=== PATIENT | male | born 1980 | race Caucasian/White ===

== ENCOUNTER 2019-12-23 10:50 | Emergency (ER) | payer SELFPAY ==
[~2019-12-23] VITALS: Ht 185.4 cm; Wt 108.0 kg
[2019-12-23] MEDS ORDERED: SODIUM CHLORIDE 0.9% 1000ML 1,000 ML IV STA (11:06)
[2019-12-23] MEDS ORDERED: ASPIRIN 81 MG CHEW TAB PO ONE (11:15)
[2019-12-23 11:25] LABS: BASOPHILS # (AUTO) 0.1 (0.0-0.1); BASOPHILS % 0.5 % (0.0-1.0); EOSINOPHILS % 0.1 % (0.0-6.0); HEMATOCRIT 44.2 % (38.2-49.6); HEMOGLOBIN 15.9 g/dL (14.0-18.0); LYMPHOCYTES # (AUTO) 1.4 (1.0-3.2); LYMPHOCYTES % 12.2 % (18.0-39.1); MEAN CORPUSCULAR HEMOGLOBIN 36.7 pg (28-32); MEAN CORPUSCULAR VOLUME 102.1 fL (81-99); MONOCYTES # (AUTO) 0.8 (0.2-0.8); MONOCYTES % 7.6 % (4.4-11.3); NEUTROPHILS # (AUTO) 8.7 (2.1-6.9); NEUTROPHILS % 79.1 % (38.7-80.0); PLATELET COUNT 129 x10e3/uL (140-360); RED BLOOD COUNT 4.33 x10e6/uL (4.3-5.7); RED CELL DISTRIBUTION WIDTH 11.3 % (11.7-14.4)
[2019-12-23] MEDS: ASPIRIN 81 MG CHEW TAB PO ONE ×2 (11:35→12:03)
[2019-12-23 11:37] LABS: ALANINE AMINOTRANSFERASE 50 IU/L (0-55); ALBUMIN/GLOBULIN RATIO 1.5 (0.8-2.0); ALKALINE PHOSPHATASE 62 IU/L (40-150); ANION GAP 13.7 mmol/L (8-16); BLOOD UREA NITROGEN 6 mg/dL (7-26); BUN/CREATININE RATIO 6 (6-25); CALCIUM 8.9 mg/dL (8.4-10.2); CARBON DIOXIDE 26 mmol/L (22-29); CHLORIDE 103 mmol/L (98-107); CREATINE KINASE 86 IU/L (30-200); CREATININE, SERUM 0.95 mg/dL (0.72-1.25); EST GLOMERULAR FILTRATION RATE > 60 ML/MIN (60-); GLUCOSE 112 mg/dL (74-118); POTASSIUM 3.7 mmol/L (3.5-5.1); SODIUM 139 mmol/L (136-145)
--- NOTE | 2019-12-23 11:37 | Diagnostic Imaging Report ---
EXAMINATION: CHEST SINGLE (PORTABLE) INDICATION: Chest pain COMPARISON: None FINDINGS: LINES/TUBES:EKG leads overlie the chest. LUNGS:The lungs are well-inflated. No focal consolidation or pulmonary edema. PLEURA:No pleural effusion or pneumothorax. MEDIASTINUM:The cardiomediastinal silhouette appears normal in size and shape. BONES/SOFT TISSUES:No acute osseous injury. ABDOMEN:No free air under the diaphragm. IMPRESSION: No focal pneumonia or pulmonary edema. Signed by: Naz Dent MD on 12/23/2019 11:34 AM
--- OUTSIDE RECORDS SUMMARY | 2019-12-23 11:48 | XMS REPORT | Clinical Summary ---
Author Author [facility] ict Organization [facility] ict Address Unknown Phone Unavailable Care Team Providers Care Marble Machine Tender Name Role Phone Ben Arias MD PCP [phone] Allergies No Known Allergies Medications End Date Status Medication Sig Dispensed Refills Start Date Active polyethylene glycol Add lukewarm 4000 mL 0 08/03 (GOLYTELY) [id number] drinking 7 -5.86 gram oral water to the solutionIndications: fill jaylyn (4 Hematochezia liters) and shake. Drink as directed by your doctor.. Active sulindac (CLINORIL) 200 Take 1 tablet 40 tablet 0 mg tabletIndications: by mouth 2 7 Polyarthralgia times daily as needed for Pain. Additional Information Patient not taking. Reported on 10/16/2019 11:01 AM Active ergocalciferol (VITAMIN Take 1 12 capsule 3 D2) 50,000 unit capsule by 8 capsuleIndications: mouth weekly. Vitamin D deficiency Active acetaminophen-codeine Take 1 tablet 30 tablet 0 (TYLENOL/CODEINE #3) by mouth 2 8 300-30 mg per times daily tabletIndications: Tear as needed for of left supraspinatus Pain. tendon, sequela, Pain of both shoulder joints, Low back pain at multiple sites Additional Information Patient not taking. Reported on 12/11/2019 2:52 PM Active tiotropium (SPIRIVA WITH Inhale 1 30 capsule 2 0 HANDIHALER) 18 mcg capsule by 9 inhalation mouth daily. capsuleIndications: Shortness of breath Active nicotine (NICODERM CQ) 21 Apply 1 Patch 28 Patch 0 mg/24 hr to skin as 0 patchIndications: Tobacco directed use disorder daily. Active nicotine polacrilex Place 1 Each 1 Each 0 05/09 (NICORETTE) 2 mg inside cheek 0 GumIndications: Tobacco every 2 hours use disorder as needed (Tobacco withdrawals). Additional Information Patient not taking. Reported on 10/16/2019 11:01 AM Active thiamine, B-1, 100 mg Take 1 tablet 30 tablet 0 tabletIndications: by mouth 0 Alcohol use disorder, daily. severe, in early remission Active propranoloL (INDERAL) 20 Take 1 tablet 270 tablet 1 mg tabletIndications: by mouth 3 0 Other mixed anxiety times daily. disorders Active aspirin (ASPIRIN) 81 mg Chew and 0 chewable tablet swallow 81 mg by mouth daily. Active omeprazole (PRILOSEC) 20 Take 1 90 capsule 1 0 mg delayed release capsule by 0 capsuleIndications: mouth daily Gastroesophageal reflux STOP disease, esophagitis FAMOTIDINE. presence not specified Active naltrexone (REVIA, Take 1 tablet 30 tablet 1 11/25 VIVITROL) 50 mg by mouth 0 tabletIndications: daily. Bipolar II disorder Active gabapentin (NEURONTIN) Take 1 120 capsule 1 300 mg capsule by 0 capsuleIndications: Other mouth 4 times mixed anxiety disorders daily. 12/26/2019 Active lithium carbonate Take 1 90 capsule 1 11/26/19 2 (ESKALITH) 300 mg capsule by 0 capsuleIndications: mouth daily Bipolar II disorder AND 2 capsules at bedtime nightly. Do all this for 30 days. Active nitroGLYCERIN (NITROSTAT) Dissolve 1 100 tablet 3 0.4 mg sublingual tablet under 0 tabletIndications: the tongue Coronary artery disease every 5 involving [place] coronary minutes as artery of [place] heart needed, up to without angina pectoris 3 times. If chest pain persists, call 911. 02/12/2019 Discontinued (Reorder) gabapentin (NEURONTIN) Take 1 120 capsule 1 300 mg capsule by 9 capsuleIndications: Other mouth 4 times mixed anxiety disorders daily. 02/12/2019 Discontinued (Reorder) amitriptyline (ELAVIL) 25 Take 2 60 tablet 3 mg tabletIndications: tablets by 9 Bipolar II disorder mouth at bedtime nightly. 02/12/2019 Discontinued (Reorder) lithium carbonate Take 3 170 capsule 1 10/01/20 1 (ESKALITH) 300 mg capsules by 9 capsuleIndications: mouth 2 times Bipolar II disorder daily (with meals). 02/12/2019 Discontinued (Reorder) naltrexone (REVIA, Take 1 tablet 30 tablet 1 12/18 VIVITROL) 50 mg by mouth 9 tabletIndications: daily. Bipolar II disorder 02/12/2019 Discontinued (Reorder) propranolol (INDERAL) 10 Take 1 tablet 90 tablet 1 mg tabletIndications: by mouth 3 9 Bipolar II disorder times daily as needed (anxiety). 03/26/2019 Discontinued (Reorder) gabapentin (NEURONTIN) Take 1 120 capsule 1 300 mg capsule by 9 capsuleIndications: Other mouth 4 times mixed anxiety disorders daily. 03/26/2019 Discontinued (Reorder) amitriptyline (ELAVIL) 25 Take 2 60 tablet 3 mg tabletIndications: tablets by 9 Bipolar II disorder mouth at bedtime nightly. 03/26/2019 Discontinued (Reorder) lithium carbonate Take 3 170 capsule 1 02/13/20 1 (ESKALITH) 300 mg capsules by 9 capsuleIndications: mouth 2 times Bipolar II disorder daily (with meals). 03/26/2019 Discontinued (Reorder) naltrexone (REVIA, Take 1 tablet 30 tablet 1 02/12 VIVITROL) 50 mg by mouth 9 tabletIndications: daily. Bipolar II disorder 03/26/2019 Discontinued (Reorder) propranolol (INDERAL) 10 Take 1 tablet 90 tablet 1 mg tabletIndications: by mouth 3 9 Bipolar II disorder times daily as needed (anxiety). 05/28/2019 Discontinued (Reorder) gabapentin (NEURONTIN) Take 1 120 capsule 1 300 mg capsule by 0 capsuleIndications: Other mouth 4 times mixed anxiety disorders daily. 05/09/2019 Discontinued (Patient Discha rge) amitriptyline (ELAVIL) 25 Take 2 60 tablet 3 mg tabletIndications: tablets by 0 Bipolar II disorder mouth at bedtime nightly. 05/09/2019 Discontinued (Patient Discha rge) lithium carbonate Take 3 170 capsule 1 03/26/19 2 (ESKALITH) 300 mg capsules by 0 capsuleIndications: mouth 2 times Bipolar II disorder daily (with meals). 05/28/2019 Discontinued (Reorder) naltrexone (REVIA, Take 1 tablet 30 tablet 1 03/26 VIVITROL) 50 mg by mouth 0 tabletIndications: daily. Bipolar II disorder 05/28/2019 Discontinued (Therapy comple marcel) propranolol (INDERAL) 10 Take 1 tablet 90 tablet 1 mg tabletIndications: by mouth 3 0 Bipolar II disorder times daily as needed (anxiety). 05/28/2019 Discontinued (Reorder) lithium carbonate Take 1 45 capsule 0 05/09/19 2 (ESKALITH) 300 mg capsule by 0 capsuleIndications: mouth daily Bipolar II disorder AND 2 capsules at bedtime nightly. 05/24/2019 hydrOXYzine (ATARAX) 50 Take 1 tablet 45 tablet 0 mg tabletIndications: by mouth 3 0 Depressive disorder times daily as needed for up to 15 days for Anxiety. 05/28/2019 Discontinued (Therapy comple marcel) QUEtiapine (SEROQUEL) 25 Take 1 tablet 30 tablet 0 mg tabletIndications: by mouth 2 0 Bipolar II disorder times daily. 07/23/2019 Discontinued (Reorder) lithium carbonate Take 1 45 capsule 0 05/28/19 2 (ESKALITH) 300 mg capsule by 0 capsuleIndications: mouth daily Bipolar II disorder AND 2 capsules at bedtime nightly. 07/23/2019 Discontinued (Reorder) gabapentin (NEURONTIN) Take 1 120 capsule 1 300 mg capsule by 0 capsuleIndications: Other mouth 4 times mixed anxiety disorders daily. 07/23/2019 Discontinued (Reorder) naltrexone (REVIA, Take 1 tablet 30 tablet 1 05/27 VIVITROL) 50 mg by mouth 0 tabletIndications: daily. Bipolar II disorder 10/01/2019 Discontinued (Reorder) naltrexone (REVIA, Take 1 tablet 30 tablet 1 07/22 VIVITROL) 50 mg by mouth 0 tabletIndications: daily. Bipolar II disorder 10/01/2019 Discontinued (Reorder) gabapentin (NEURONTIN) Take 1 120 capsule 1 300 mg capsule by 0 capsuleIndications: Other mouth 4 times mixed anxiety disorders daily. 10/01/2019 Discontinued (Reorder) lithium carbonate Take 1 45 capsule 0 07/23/19 2 (ESKALITH) 300 mg capsule by 0 capsuleIndications: mouth daily Bipolar II disorder AND 2 capsules at bedtime nightly. 11/26/2019 Discontinued (Duplicate Orde r) propranoloL (INDERAL) 10 Take 1 tablet 90 tablet 1 mg tabletIndications: by mouth 3 0 Other mixed anxiety times daily disorders as needed (anxiety). 08/22/2019 Discontinued (Reorder) propranoloL (INDERAL) 20 Take 1 tablet 270 tablet 1 mg tabletIndications: by mouth 3 0 Other mixed anxiety times daily. disorders 08/22/2019 Discontinued (Reorder) famotidine (PEPCID) 20 mg Take 1 tablet 180 tablet 1 tabletIndications: by mouth 2 0 Gastroesophageal reflux times daily. disease, esophagitis presence not specified 10/17/2019 Discontinued (Error) famotidine (PEPCID) 20 mg Take 1 tablet 180 tablet 1 tabletIndications: by mouth 2 0 Gastroesophageal reflux times daily. disease, esophagitis presence not specified 11/26/2019 Discontinued (Reorder) lithium carbonate Take 1 90 capsule 1 10/01/19 2 (ESKALITH) 300 mg capsule by 0 capsuleIndications: mouth daily Bipolar II disorder AND 2 capsules at bedtime nightly. Do all this for 30 days. 11/26/2019 Discontinued (Reorder) naltrexone (REVIA, Take 1 tablet 30 tablet 1 09/30 VIVITROL) 50 mg by mouth 0 tabletIndications: daily. Bipolar II disorder 11/26/2019 Discontinued (Reorder) gabapentin (NEURONTIN) Take 1 120 capsule 1 300 mg capsule by 0 capsuleIndications: Other mouth 4 times mixed anxiety disorders daily. Status Hospital, Clinic, or Ordered Dose Route Frequency Start End Date Other Facility Date Administered Medication Ended ketorolac (TORADOL) 30 mg IM ONCE 05/16/19 injection 30 20 0 mgIndications: Polyarthralgia Active Problems Problem Noted Date Depressive disorder 05/07/2019 Alcohol use disorder, severe, in early remission Bipolar II disorder 02/19/2015 Alcohol use disorder, severe, dependenc e Resolved Problems Problem Noted Date Resolved Date Closed bimalleolar fracture of right ankle 06/04/2018 05/09/2019 Left wrist pain 09/17/2015 05/09/2019 Supraspinatus tendon tear 03/19/2015 05/09/2019 Left shoulder pain 03/19/2015 05/09/2019 Fracture, metacarpal 04/28/2009 05/09/2019 Encounters Care Team Description Date Type Specialty Radha Gundreson MD Coronary artery disease involving [place] coronary artery of [place] heart without angina pectoris (Primary Dx) 12/12/2019 Telephonic Cardiology Encounter Radha Gunderson MD Cory Haynes Mathieu 12/06/2019 Hospital Cardiology Encounter Kendra Elder MDD (major depressive disorder), recurre nt episode, moderate (Primary Dx); CECIL (generalized anxiety disorder); Panic attacks 12/06/2019 Telephonic Psychology Encounter Josh Andrade ResidentDO Bipolar II disorder (Primary Dx); Other mixed anxiety disorders; Alcohol use disorder, severe, dependence; Sedative abuse; Tobacco use disorder; Cluster B personality disorder in adult 11/26/2019 Office Visit Psychiatry Chronic sore throat; Dysphagia, unspecified type 10/24/2019 Ancillary Radiology Procedure Radha Gunderson MD Chest pain, unspecified type (Primary Dx ) 10/17/2019 Telephonic Cardiology Encounter Shandra Muhammad MD Chronic sore throat (Primary Dx); Dysphagia, unspecified type; Gastroesophageal reflux disease, esophagitis presence not specified 10/17/2019 Telephonic Family Practice Encounter Kendra Elder 10/14/2019 Telephonic Psychology Encounter Cee Wheat MD 10/10/2019 Telemedicine Psychiatry Cee Wheat MD NO SHOW ENCOUNTER (Primary Dx) 10/03/2019 Telemedicine Psychiatry Rhys Olivares MD Sanchez, Roberto D, ResidentDO Bipolar II disorder (Primary Dx); Other mixed anxiety disorders; Preventative health care 10/01/2019 Office Visit Psychiatry Ben Arias MD Cardiac ischemia (Primary Dx); Encounter to discuss test results 09/26/2019 Telephonic Family Practice Encounter Ben Arias MD 09/24/2019 Hospital Radiology Encounter Kendra Elder MDD (major depressive disorder), severe (Primary Dx); Panic attacks; ETOH abuse 09/16/2019 Office Visit Psychology Kendra Elder MDD (major depressive disorder), severe (Primary Dx); CECIL (generalized anxiety disorder); Panic attacks 08/26/2019 Office Visit Psychology Shandra Muhammad MD Bipolar disorder with depression (Primar y Dx); Other mixed anxiety disorders; Anxiety; History of chest pain; Gastroesophageal reflux disease, esophagitis presence not specified 08/22/2019 [facility] Muhammad MD 08/22/2019 [facility] Rhys Olivares MD Bipolar II disorder (Primary Dx); Other mixed anxiety disorders; Alcohol use disorder, severe, dependence; Nicotine use disorder; Insomnia due to other mental disorder; Sedative abuse 08/20/2019 Office Visit Psychiatry Corinne Cordova MD Bipolar II disorder; Other mixed anxiety disorders 07/23/2019 Telephonic Psychiatry Encounter Cee Wheat MD Bipolar II disorder (Primary Dx); Other mixed anxiety disorders; Alcohol use disorder, severe, dependence; Tobacco use disorder; Nicotine use disorder 06/03/2019 Office Visit Psychiatry Corinne Cordova MD Bipolar II disorder; Other mixed anxiety disorders 05/28/2019 Office Visit Psychiatry Lilibeth Macedo Bipolar II disorder (Primary Dx); Alcohol use disorder, moderate, dependence; History of marijuana use; History of cocaine use; History of methamphetamine use 05/23/2019 Office Visit Psychology Ben Arias MD Polyarthralgia (Primary Dx); Bipolar disorder with depression; Hospital discharge follow-up; Need for influenza vaccination 05/16/2019 [facility] Nini Hunt 05/09/2019 Hospital Encounter Dario Suarez MD Depressive disorder (Primary Dx); Alcohol use disorder, severe, dependence; Tobacco use disorder; Alcohol use disorder, severe, in early remission; Bipolar II disorder 05/07/2019 Hospital Psychiatry - Encounter 05/09/2019 Corinne Cordova MD Coverdale, John H, MD Bipolar II disorder (Primary Dx) 05/07/2019 Office Visit Psychiatry Corinne Cordova MD Other mixed anxiety disorders; Bipolar II disorder 03/26/2019 Office Visit Psychiatry Corinne Cordova MD Other mixed anxiety disorders; Bipolar II disorder 02/12/2019 Office Visit Psychiatry after 12/22/2018 Immunizations Name Administration Dates Next Due Influenza, Vaccine 06/05/2018 (Deferred: Patie nt Refused) <FLUCELVAX>(Preservative- Free) Tdap (Tetanus Toxoid, 10/18/2017 Reduced Diphtheria Toxoid And Acellular Pertussis, Absorbed) Family History Medical History Relation Name Comments Asthma Brother Arthritis Maternal Grandmother Asthma Maternal Grandmother Diabetes Maternal Grandmother Arthritis Mother Relation Name Status Comments Brother Alive Brother Alive Brother Brother Father Alive Maternal Grandmother Mother Alive Social History Date Tobacco Use Types Packs/Day Years Used Current Every Day Smoker Cigarettes 1 15 Smokeless Tobacco: Never Used Tobacco Cessation: Ready to Quit: No; Co unseling Given: Yes Drinks/Week oz/Week Comments Alcohol Use 12pk a day Yes Food Insecurity Answer Date Recorded Within the past 12 months, you worried that your Never josué e 06/04/2018 food would run out before you got money to buy more. Within the past 12 months, the food you bought Never true 06/04/2018 just didn't last and you didn't have mo jordy to get more. Sex Assigned at Date Recorded Not on file Industry Job Start Date Occupation Not on file Not on file Not on file Travel End Travel History Travel Start No recent travel history available. Date Recorded COVID-19 Exposure Response 12/11/2019 2:45 PM CDT In the last month, have you been in contact with No / Unsure someone who was confirmed or suspected to have Coronavirus / COVID-19? Last Filed Vital Signs Reading Time Taken Comments Vital Sign 155/114 12/11/2019 2:46 PM CDT Blood Pressure 70 12/11/2019 2:46 PM CDT Pulse 36.9 C (98.5 F) 11/26/2019 9:47 AM CDT Temperature 20 11/26/2019 9:47 AM CDT Respiratory Rate 100% 11/26/2019 9:47 AM CDT Oxygen Saturation - - Inhaled Oxygen Concentration 109.6 kg (241 lb 9.6 oz) 11/26/2019 9:47 AM CDT Weight 185.4 cm (6' 1") 11/26/2019 9:47 AM CDT Height 31.88 11/26/2019 9:47 AM CDT Body Mass Index Plan of Treatment Care Team Description Date Type Specialty Kendra [address]. [id number] [place] [address] [phone] 01/07/2020 Telephonic Psychology Encounter Cee Wheat MD [address] [place], [place] [id number] 01/27/2020 Office Visit Psychiatry Health Maintenance Due Date Last Done Comments IMM Influenza Seasonal 12/19/2019 01/22/2015Dec to May (>/= 19 yrs) (Declined) CORONARY ARTERY DISEASE 05/08/2020 05/08/2019, AGE 18 AND UP 06/05/2018, 01/22/2015 Procedures Comments Procedure Name Priority Date/Time Associated Diag nosis ECHG NON-INVASIVE PROC Routine 12/06/2019 Chest p ain, unspecified ECHOCARDIOGRAM 2-D W/O 10:52 AM CDT type CONTRAST (PROSOLVE) XRAY UPPER GI W AIR Routine 10/24/2019 Chronic so re throat CONTRAST 10:01 AM CDT Dysphagia, unspecif ied type MYOCARDIAL PERFUSION Routine 09/24/2019 History o f chest pain SPECT REST/STRES MULTIPLE 10:12 AM CDT ECHG STRESS TREADMILL - 09/24/2019 TRACING ONLY (PROSOLVE) 9:14 AM CDT CBC Routine 05/08/2019 11:39 AM EQUIPMENT VALIDATION ENGINEER LIPID PROFILE Routine 05/08/2019 11:39 AM EQUIPMENT VALIDATION ENGINEER HEMOGLOBIN A1C Routine 05/08/2019 11:39 AM EQUIPMENT VALIDATION ENGINEER HIV AG/AB COMBO Routine 05/08/2019 DIAGNOSTIC/SYMPTOMATIC 11:39 AM EQUIPMENT VALIDATION ENGINEER HEPATITIS PANEL Routine 05/08/2019 11:39 AM EQUIPMENT VALIDATION ENGINEER COMPREHENSIVE METABOLIC Routine 05/08/2019 PANEL 11:39 AM EQUIPMENT VALIDATION ENGINEER CBC/DIFF Routine 05/08/2019 11:39 AM EQUIPMENT VALIDATION ENGINEER LITHIUM Routine 05/08/2019 11:39 AM EQUIPMENT VALIDATION ENGINEER THYROID STIMULATING Routine 05/08/2019 HORMONE (TSH) 11:39 AM EQUIPMENT VALIDATION ENGINEER URINALYSIS Routine 05/07/2019 3:38 PM EQUIPMENT VALIDATION ENGINEER URINALYSIS Routine 05/07/2019 3:38 PM EQUIPMENT VALIDATION ENGINEER URINE DRUG SCREEN Routine 05/07/2019 3:38 PM EQUIPMENT VALIDATION ENGINEER after 12/22/2018 Results * TRANSTHORACIC ECHO (TTE) (12/06/2019 10:52 AM CDT) TRANSTHORACIC Transthoracic SMS ECHO (TTE) Echo Report STEVE ARCHER Age: 39 Gender: M : 1980 Exam Date: 12/06/2019 10:52 Exam Location: [facility] Echo Ordering Phys: RADHA GUNDERSON (hchd/tabbar) Referring Phys: RADHA GUNDERSON (hchd/tabbar) Reading Phys: Mayra Lang M.D. Fellow Phys: Estrada Ye M.D. Fellow Phys: Systems Engineer: Cory Haynes Reason For Exam: Indications: ANGINA, unspecified ICD-9 Codes: I20.8 Exam Type: TRANSTHORACIC ECHO (TTE) Procedure CPT: 89659 Addtional CPT: C8929 Ht (in): 73 BSA: 2.40 HR: 92 Rhythm: Sinus rhythm Wt (lb): 241 BP: 147 / 97 Technical Quality: Technically difficult study History: Chest pain MEASUREMENTS Normal ranges based on 95% confidence intervals for adults, some normal patients may fall outside of this range especially when indexing for BSA 2D ECHO LV Diastolic Diameter PLAX 4.9 cm 4.2-5.8 (M) / 3.8-5.2 (F) LV Systolic Diameter PLAX 2.9 cm 2.5-4.0 (M) / 2.2-3.5 (F) LV Fractional Shortening PLAX 39.9 % IVS Diastolic Thickness 0.76 cm 0.6-1.0 (M) / 0.6-0.9 (F) LVPW Diastolic Thickness 0.71 cm 0.6-1.0 (M) / 0.6-0.9 (F) LV Relative Wall Thickness 0.3 <= 0.42 LVOT Diameter 2.3 cm Aortic Root Diameter 2.5 cm LV Diastolic Volume MOD BP 88.3 cm 62-150 cm (M) / 46-106 cm (F) LV Systolic Volume MOD BP 29.2 cm 21-61 cm (M) / 14-42 cm (F) LV Ejection Fraction MOD BP 66.9 % 52-72 (M) / 54-74 (F) LV Stroke Volume MOD BP 59.1 cm LV Cardiac Output MOD BP 5437 cm/min LV Cardiac Index MOD BP 2264 cm/minm LV Mass by linear method 117 g LV Mass by linear method Index 48.9 g/m Aorta at Sinotubular Diameter 4.2 cm Ascending Aorta Diameter 3.4 cm RA Volume 57.3 cm RA Volume Index 23.9 cm/m DOPPLER AV Peak Velocity 126 cm/s AV Peak Gradient 6.4 mmHg AV Mean Velocity 82.2 cm/s AV Mean Gradient 2.7 mmHg AV Velocity Time Integral 22.1 cm LVOT Peak Velocity 117 cm/s LVOT Peak Gradient 5.5 mmHg LVOT Mean Velocity 71.1 cm/s LVOT Mean Gradient 2 mmHg LVOT Velocity Time Integral 23.1 cm LVOT Stroke Volume 98.7 cm AV Area Cont Eq vti 4.5 cm AV Area Cont Eq pk 4 cm Mitral E Point Velocity 62.4 cm/s Mitral A Point Velocity 48.1 cm/s Mitral E to A Ratio 1.3 LV E' Lateral Velocity 11.4 cm/s Mitral E to LV E' Lateral Ratio 5.5 LV E' Septal Velocity 8.8 cm/s Mitral E to LV E' Septal Ratio 7.1 FINDINGS Left Ventricle The left ventricle is normal in size. Normal LV wall thickness. LV systolic function is normal. LVEF is 65 - 69%. There are no regional wall motion abnormalities. There is normal LV relaxation with normal filling pressures. Right Ventricle The right ventricle is not well visualized but appears dilated in some views. RV systolic function is normal (TAPSE 2.5 cm). Right Atrium The right atrium is normal in size. Left Atrium Grossly, left atrium is normal in size. Unable to accurately quantify due to forshortening. IAS Lipomatous hypertrophy of the interatrial septum (normal variant). Mitral Valve Structurally normal mitral valve. There is trace mitral regurgitation. Aortic Valve The aortic valve is trileaflet and structurally normal. There is no aortic stenosis. There is no aortic regurgitation. Tricuspid Valve Structurally normal tricuspid valve. There is trace tricuspid regurgitation. Insufficient TR jet to estimate pulmonary artery systolic pressure. Pulmonic Valve Normal by Doppler assessment. Pericardium Trace posterior pericardial effusion. Aorta Mild aortic dilatation at the level of the sinuses of valsalva (4.2 cm). IVC The inferior vena cava is normal in size. RA pressure is 5 mmHg. CONCLUSIONS Normal left ventricular size and systolic function. LVEF 65-69%. No regional wall abnormalities. RV is dilated with normal systolic function. No hemodynamically significant valvular abnormalities. Mild aortic root dilation (4.2 cm). No prior study for comparison. Mayra Lang M.D. (Electronically Signed) Final Date: 06 December 2019 13:49 2D ECHO LV Diastolic Diameter PLAX 4.9 cm 4.2-5.8 (M) / 3.8-5.2 (F) LV Systolic Diameter PLAX 2.9 cm 2.5-4.0 (M) / 2.2-3.5 (F) LV Fractional Shortening PLAX 39.9 % IVS Diastolic Thickness 0.76 cm 0.6-1.0 (M) / 0.6-0.9 (F) LVPW Diastolic Thickness 0.71 cm 0.6-1.0 (M) / 0.6-0.9 (F) LV Relative Wall Thickness 0.3 <= 0.42 LVOT Diameter 2.3 cm Aortic Root Diameter 2.5 cm LV Diastolic Volume MOD BP 88.3 cm 62-150 cm (M) / 46-106 cm (F) LV Systolic Volume MOD BP 29.2 cm 21-61 cm (M) / 14-42 cm (F) LV Ejection Fraction MOD BP 66.9 % 52-72 (M) / 54-74 (F) LV Stroke Volume MOD BP 59.1 cm LV Cardiac Output MOD BP 5437 cm/min LV Cardiac Index MOD BP 2264 cm/minm LV Mass by linear method 117 g LV Mass by linear method Index 48.9 g/m Aorta at Sinotubular Diameter 4.2 cm Ascending Aorta Diameter 3.4 cm RA Volume 57.3 cm RA Volume Index 23.9 cm/m DOPPLER AV Peak Velocity 126 cm/s AV Peak Gradient 6.4 mmHg AV Mean Velocity 82.2 cm/s AV Mean Gradient 2.7 mmHg AV Velocity Time Integral 22.1 cm LVOT Peak Velocity 117 cm/s LVOT Peak Gradient 5.5 mmHg LVOT Mean Velocity 71.1 cm/s LVOT Mean Gradient 2 mmHg LVOT Velocity Time Integral 23.1 cm LVOT Stroke Volume 98.7 cm AV Area Cont Eq vti 4.5 cm AV Area Cont Eq pk 4 cm Mitral E Point Velocity 62.4 cm/s Mitral A Point Velocity 48.1 cm/s Mitral E to A Ratio 1.3 LV E' Lateral Velocity 11.4 cm/s Mitral E to LV E' Lateral Ratio 5.5 LV E' Septal Velocity 8.8 cm/s Mitral E to LV E' Septal Ratio 7.1 Specimen Performing Organization Address [facility] one Number SMS * XRAY UPPER GI W AIR CONTRAST (10/24/2019 10:01 AM CDT) Specimen Impressions Performed At IMPRESSION: SMS Small amount of gastroesophageal reflux into the distal esophagus. No mucosal abnormalities. If the report is "FINALIZED" it indicat es that the attending/staff radiologist has reviewed the images and agrees with the resident's interpretation. Dictated By: Wisam Guerrero MD, 10/24/2019 2: 19 PM I have reviewed the study and agree wit h the findings in this report. Signed By: Bright Reed, 10/24/2019 3: 38 PM Narrative Performed At EXAM: DOUBLE BARIUM ESOPHAGRAM SMS INDICATION: chronic sore throat 8 month s, Hx of GERD, endorses food getting stuck in throat COMPARISON: None available. TECHNIQUE: Thick barium and effervescen t granules followed by thin barium were swallowed by mouth and fluo roscopy was performed of the esophagus and documented with spot film radiographs. RADIATION DOSE: Fluoroscopy Time: 0.9 min Dose (Kerma) Area Product: 8.2 Gy cm2 Air Kerma (AK) value has been rev iewed. It is below the limits set by the Radiation Protocol Committee (RP C) committee. FINDINGS: ESOPHAGUS: Motility: Within normal limits. Mucosa: Unremarkable. Distensibility: Normal. GASTROESOPHAGEAL JUNCTION: No evidence of hiatal hernia. GASTROESOPHAGEAL REFLUX: Small gastroes ophageal reflux into the distal esophagus. VISUALIZED STOMACH/DUODENUM: Unremarkab le. Procedure Note Interface, Rad/Mammog In - 10/24/2019 3:43 PM CDT EXAM: DOUBLE BARIUM ESOPHAGRAM INDICATION: chronic sore throat 8 months, Hx of GERD, endorses food getting stuck in throat COMPARISON: None available. TECHNIQUE: Thick barium and effervescent granules followed by thin barium were swallowed by mouth and fluoroscopy was performed of the esophagus and documented with spot film radiographs. RADIATION DOSE: Fluoroscopy Time: 0.9 min Dose (Kerma) Area Product: 8.2 Gycm2 Air [place] ([place]) value has been reviewed. It is below the limits set by the Radiation Protocol Committee (RPC) committee. FINDINGS: ESOPHAGUS: Motility: Within normal limits. Mucosa: Unremarkable. Distensibility: Normal. GASTROESOPHAGEAL JUNCTION: No evidence of hiatal hernia. GASTROESOPHAGEAL REFLUX: Small gastroesophageal reflux into the distal esophagus. VISUALIZED STOMACH/DUODENUM: Unremarkable. IMPRESSION IMPRESSION: Small amount of gastroesophageal reflux into the distal esophagus. No mucosal abnormalities. If the report is "FINALIZED" it indicates that the attending/staff radiologist has reviewed the images and agrees with the resident's interpretation. Dictated By: Wisam Guerrero MD, 10/24/2019 2:19 PM I have reviewed the study and agree with the findings in this report. Signed By: Bright Reed, 10/24/2019 3:38 PM Performing Organization Address City/State/Zipcode Ph one Number SMS * MYOCARDIAL PERFUSION SPECT REST/STRES MULTIPLE (09/24/2019 10:12 AM CDT) MYOCARDIAL Myocardial Perfusion SMS PERFUSION SPECT Report REST/STRES STEVE ARCHER Age: 39 Gender: M : 1980 Exam Date: 09/24/2019 07:57 Exam Location: [facility] Nuc Ordering Phys: SHANDRA MUHAMMAD Referring Phys: Reading Phys: Kim Carl MD Fellow Phys: Fellow Phys: Resident: Technologist: Yunier Andrade Reason For Exam: Indications: Chest pain, unspecified ICD-9 Codes: R07.9 Exam Type: MYOCARDIAL PERFUSION SPECT REST/STRES MULTIPLE Procedure CPT: 43089 Additional CPT: BP: / HR: Risk Factors: Previous Cardiac Procedures: Cardiac History: Pertinent Meds: Meds past 24 hrs: Pretest Chest Pain: CARDIOLOGY STRESS TEST Pharmacologi Cardiology exercise stress test results pending under separate report. Please look in [facility] under the Procedures Tab in Chart Review. IMAGE PROTOCOL Rst/Str 1 Day Radiopharmaceutical Dose (mCi) Duration (min) Img Date Img Time Rest: Tc-99m 10 REST DATE Tetrofosmin Stress: Tc-99m 30 STRESS DATE Tetrofosmin Administration Site: Right antecubital fossa SPECT RESULTS Technical Quality: Adequate Raw Data Analysis: Diaphragmatic attenuation Stress Perfusion Rest Perfusion Summed Stress Score:1 Summed Rest Score: 0 Summed Difference Score: 1 0 - Normal 2 - Abnormal Uptake 4 - Absent 1 - Mildly Reduced Uptake 3 - Severely Reduced Tracer Uptake X - Not Interpretable RV: Small area of mild reversible defect identified in the inner inferior wall, which may represent ischemia. Summed Stress Score of 1. No areas of infarct identified. FUNCTION (calculated via Gated SPECT) Resting LV EF: % EDV: 91 ml (70-100 ml) Post Stress LV EF: 66 % TID: ESV: 31 ml (30-50 ml) Technical Quality: LV Size & Function: Normal left ventricular size and ejection fraction. LV Regional Function: Normal left ventricular wall motion and thickening. Other Findings: Variable Not Implemented IMPRESSIONS Small area of mild reversible defect identified in the inner inferior wall, which may represent ischemia. Summed Stress Score of 1. No areas of infarct identified. [place] Control: Do not remove! Kim Carl MD (Electronically Signed) Final Date: 24 September 2019 15:04 Specimen Performing Organization Address City/State/Zipcode Ph one Number [facility] * TREADMILL STRESS-TRACING ONLY (09/24/2019 9:14 AM CDT) Stress Test [facility] Test Date: 2019-09-24 Pat Name: STEVE ARCHER Department: [id number] Room: Gender: M Carpet Binder: Adelaida HAWKINS / Babita CCT : 1980 Requested By: MARU Marshall Order Number: [id number] Reading MD: Maru GUERRIER Interpretive Statements The patient was tested using LEXISCAN STRESS TEST for a duration of 01:00. A maximum heart rate of 95 was obtained at 03:00 with a maximum systolic blood pressure of 143/95 at 02:10 and a maximum diastolic blood pressure of 128/96 obtained at 03:10. The resting ECG was normal. The stress ECG did not change diagnostically from the pre-test study. No ectopy was observed. CONCLUSION: Negative Lexiscan ECG stress test. Nuclear scan results pending under separate report per radiology department. Electronically Signed On 09-24-2019 10:57:01 CDT by Maru GUERRIER Specimen Performing Organization Address City/State/Zipcode Ph one Number SMS * CBC/Diff (05/08/2019 11:39 AM EQUIPMENT VALIDATION ENGINEER) WBC 7.3 4.5 - 12.0 K/uL [facility] RBC 5.07 4.60 - 6.20 M/uL [facility] Hemoglobin 16.7 14.0 - 18.0 g/dL [facility] Hematocrit 48.2 40.0 - 54.0 % [facility] MCV 95.1 (H) 82.0 - 92.0 fL [facility] MCH 32.9 (H) 27.0 - 31.0 pg [facility] MCHC 34.6 32.0 - 36.0 g/dL [facility] RDW 41.6 35.1 - 43.9 fL [facility] Platelet 145 (L) 150 - 400 K/uL [facility] Mean Platelet 11.9 9.4 - 12.4 fL [facility] Volume [facility] Percent NRBC 0.0 % [facility] Neutrophil 72.6 (H) 34.0 - 67.9 % [facility] Lymphs 17.0 (L) 21.8 - 50.0 % [facility] Monocytes 8.9 5.3 - 12.0 % [facility] Eos 0.7 (L) 0.8 - 5.0 % [facility] Basos 0.4 0.2 - 1.2 % [facility] Immature 0.4 0.0 - 0.5 % [facility] Granulocytes LAB[facility]ORY Neutrophils 5.28 1.78 - 5.36 K/uL [facility] (Absolute) [facility] Lymphs 1.24 (L) 1.32 - 3.57 K/uL [facility] (Absolute) [facility] Monocytes(Absol 0.65 0.30 - 0.82 K/uL [facility] lety) LABORATORY Eos (Absolute) 0.05 0.04 - 0.54 K/uL [facility] Baso (Absolute) 0.03 0.01 - 0.08 K/uL [facility] Immature Grans 0.03 0.00 - 0.03 K/uL [facility] (Abs) [facility] Absolute NRBC 0.00 K/uL [facility] Specimen Blood Performing Organization Address [place] one Number [facility] [address] [place] [address] [phone] * Hemoglobin A1C (05/08/2019 11:39 AM EQUIPMENT VALIDATION ENGINEER) Hemoglobin A1c 5.3 4.3 - 6.1 % [facility] Estimated 105 70 - 110 mg/dL [facility] Average Glucose [facility] Specimen Blood Performing Organization Address [place] one Number [facility] [address] [place] [address] * Comprehensive Metabolic Panel (05/08/2019 11:39 AM EQUIPMENT VALIDATION ENGINEER) Sodium 142 136 - 145 mmol/L [facility] Potassium 4.1 3.5 - 5.1 mmol/L [facility] Chloride 106 98 - 107 mmol/L [facility] CO2 29 21 - 31 mmol/L [facility] Glucose 100 70 - 110 mg/dL [facility] Calcium 9.9 8.6 - 10.3 mg/dL [facility] Urea Nitrogen 7.0 7.0 - 25.0 mg/dL [facility] Creatinine 0.8 0.7 - 1.3 mg/dL [facility] Alkaline 67 34 - 104 U/L [facility] Phosphatase [facility] ALT 27 7 - 52 U/L [facility] AST 20 13 - 39 U/L [facility] Bilirubin, 0.5 0.2 - 1.2 mg/dL [facility] Total [facility] Total Protein 6.2 6.0 - 8.3 g/dL [facility] GFR, Estimated >90 >=90 mL/min/1.73 m2 [facility] Albumin 4.2 4.2 - 5.5 g/dL [facility] Anion Gap 7 5 - 16 mmol/L [facility] Specimen Blood Performing Organization Address [place] one Number [facility] [address] [place], [place] [phone] * TSH (05/08/2019 11:39 AM EQUIPMENT VALIDATION ENGINEER) TSH 0.85 0.45 - 5.33 uIU/mL [facility] Specimen Blood Performing Organization Address [facility] one Number [facility] [address] [place] [address] * Catharine (05/08/2019 11:39 AM EQUIPMENT VALIDATION ENGINEER) [facility] Catharine 0.4 (L) 1.0 - 1.2 mmol/L [facility] Specimen Blood Performing Organization Address [facility] [place] one Number [facility] [address] [place] [address] * Lipid Profile (05/08/2019 11:39 AM EQUIPMENT VALIDATION ENGINEER) [facility] Cholesterol 113.0 <=200.0 mg/dL [facility] Triglyceride 133 <150 mg/dL [facility] HDL 38.0 See Reference Range [facility] Narrative. mg/dL LABORATORY LDL 48 <100 mg/dL [facility] Comment: [facility] Optimal: < 100.0 mg/dL Near Optimal: 120-129 mg/dL Borderline: 130-159 mg/dL High: 160-189 mg/dL Very High: >=190 mg/dL Patient Yes [facility] Fasting? LABORATORY Specimen Blood Performing Organization Address [place] [place] one Number [facility] [address] [place] [address] [phone] * HIV-1/HIV-2 (05/08/2019 11:39 AM EQUIPMENT VALIDATION ENGINEER) [facility] HIV Ag/Ab Combo Negative Negative [facility] Specimen Blood Narrative Performed At If not done in [facility] Performing Organization Address [place] [place] one Number [facility] [address] [place] [address] [phone] * Hepatitis Panel (05/08/2019 11:39 AM EQUIPMENT VALIDATION ENGINEER) [facility] Hepatitis C Negative Negative [facility] Virus (HCV) [facility] Antibody Hep B Surface Negative Negative [facility] Ag [facility] Hep A Vir Ab Negative Negative [facility] IgM [facility] Hep B Core Ab Negative Negative [facility] IgM [facility] Specimen Blood Performing Organization Address [place] [place] one Number [facility] [address] [place] [address] * Urinalysis (05/07/2019 3:38 PM EQUIPMENT VALIDATION ENGINEER) [facility] Color Yellow Colorless, Straw, [facility] Yellow [facility] Clarity Clear Clear [facility] Spec [place], 1.008 1.001 - 1.035 [facility] Ur [facility] pH, Ur 5.0 5.0 - 8.0 [facility] Protein, Ur Negative Negative mg/dL [facility] Glucose, Ur Negative Negative mg/dL [facility] Ketone, Ur Negative Negative mg/dL [facility] Bilirubin, Ur Negative Negative mg/dL [facility] Nitrite, Ur Negative Negative [facility] Leukocyte Negative Negative mg/dL [facility] Blood, Ur Negative Negative mg/dL [facility] Urobilinogen, <1.0 <1.0 EU/dL [facility] Ur [facility] Specimen Urine Performing Organization Address [place] Ph one Number [facility] [address] [place], [place] [phone] * Urine Drug Screen (05/07/2019 3:38 PM EQUIPMENT VALIDATION ENGINEER) Opiate, Ur Negative Negative [facility] Comment: LAB[facility] Calibrated Standard: Morphine Positive if urine level > or = 300 ng/dL Amphetamine Negative Negative [facility] Comment: [facility] Calibrated Standard: D-Methamphetamine Positive if urine level > or = 1000 ng/mL Barbiturate Negative Negative [facility] Comment: [facility] Calibrated Standard: Secobarbital Positive if urine level is > or = 200 ng/mL Benzodiazepine Negative Negative [facility] Comment: [facility] Calibrated Standard: Lormethazepam Positive if urine level is > or = 200 ng/mL Cocaine Negative Negative [facility] Comment: [facility] Calibrated Standard: Benzoylecgonine Positive if urine level > or = 300 ng/dL PCP Negative Negative [facility] Comment: [facility] Calibrated Standard: Phencyclidine Positive if urine level > or = 25 ng/dL Cannabinoid Negative Negative [facility] Comment: [facility] Calibrated Standard: 11 nor-delta(9)-THC carboxylic acid Positive if urine level > or = 50 ng/mL Specimen Urine - Voided, urine Performing Organization Address [place] one Number [facility] [address] [place], [place] [phone] after 12/22/2018 Insurance Type Payer Benefit Subscriber ID Effective Phone Address Plan / Dates [facility] xxxxxxxxxxxx 2019- [address] [facility] [id number] [place] [phone] [facility] CHOICE BEACON xxxxxxxxxxxx 2019-P [phone] [facility] [employer]ov[employer] resent [id number] [place] [phone] Advance Directives Date Inactivated Comments Code Status Date Activated 05/09/2019 5:42 PM Full Code 05/07/2019 12:22 PM 05/07/2019 12:22 PM Full Code 05/07/2019 11:55 AM 05/07/2019 11:26 AM Full Code 05/07/2019 11:26 AM
--- OUTSIDE RECORDS SUMMARY | 2019-12-23 11:48 | XMS REPORT | Continuity of Care Document ---
Author Author [facility] t Organization [facility] Address [address] [place] [address] Phone Unavailable Care Team Providers Care Lead Warehouse Associate Name Role Phone Asked, Pcp No PCP Unavailable KAELA MORALES Attphys Unavailable Hetal GONZALES, Robi Soto Attphys Mathieu Haynes Attphys Unavailable Robi Elder Attphys Desirae Nelson Attphys [phone] Arielle PhD, Dalton Hitchcock Attphys Unavailable Una GONZALES, NVicky Vasquez Attphys Joey GONZALES, Jennifer Person Attphys Nima Travis MD, Kenrick Joiner Attphys [phone] Jj GONZALES, Elise Reyna Attphys Mary Alice GONZALES, Randy Mike Attphys Hugo GONZALES, O Ben Attphys [phone] Tasha GONZALES, N Corinne Attphys [phone] Robi Macedo Attphys Unavailable Christi Hunt Attphys Syeda Dueñas MD Attphys [facility] Unavailable Payers Payer Name Policy Type Policy Number Effective Date Expiration Date [facility] [id number] [address] xxxxxxxxxxxx 2019 00:00:00 2078 23:59:59 [facility] [id number] [id number] 2019 00:00:00 [place] [facility] Problems Condition Name Condition Details Condition Category Status Onset Date Resolution Date Last Treatment Date Treating Clinician Comments Source Chest pain Chest pain Disease Active 2019-10-25 00:00:00 [facility] Depressive disorder Depressive disorder Disease Active 2019-05-07 00:00 :00 [facility] Alcohol use disorder, severe, in early remission Alcoh ol use disorder, severe, in early remission Disease Active 2019-05-07 00:00:00 [facility] Bipolar II disorder Bipolar II disorder Disease Active 2015-02-19 00:00 :00 [facility] Alcohol use disorder, severe, dependence Alcohol use d isorder, severe, dependence Disease Active [facility] History of Past Illness Condition Name Condition Details Condition Category Status Onset Date Resolution Date Last Treatment Date Treating Clinician Comments Source Closed bimalleolar fracture of right ankle Closed bima lleolar fracture of right ankle Disease Resolved 2018-06-04 00:00:00 2019-05-09 00:00:00 2 14:02:11 [facility] Left wrist pain Left wrist pain Disease Resolved 2015-09-17 00:0 0:00 2019-05-09 00:00:00 2019-05-09 14:02:09 [facility] Supraspinatus tendon tear Supraspinatus tendon tear Disease Re solved 2015-03-19 00:00:00 2019-05-09 00:00:00 2019-05-09 14:02:06 fflick Left shoulder pain Left shoulder pain Disease Resolved 2015-02-19 1 00:00:00 2019-05-09 00:00:00 2019-05-09 14:02:07 Soni Syeda marek Fracture, metacarpal Fracture, metacarpal Disease Resolved 04-28 00:00:00 2019-05-09 00:00:00 2019-05-09 14:02:03 Soni Syeda fer Allergies, Adverse Reactions, Alerts Allergy Name Allergy Type Status Severity Reaction(s) Onset Date Inacti ve Date Treating Clinician Comments Source No Known Allergies DA Active U 2019-09-25 00:00:00 [facility] No Known Intolerances DA Active U 2009-01-14 00:00:00 [facility] Family History Family Member Diagnosis Comments Start Date Stop Date Source Natural brother Asthma Soni Wilver lesley Maternal grandmother Arthritis [facility] Maternal grandmother Asthma [facility] Maternal grandmother Diabetes [facility] Natural mother Arthritis Zachariah Pettita [facility] Social History Social Habit Start Date Stop Date Quantity Comments Source History of tobacco use Cigarette Smoker [facility] Alcohol Comment 12pk a day [facility] alth Sex Assigned At [facility] Exposure to SARS-CoV-2 (event) Not sure [facility] Cigarettes smoked current (pack per day) - Reported 00:00:00 2019-11-26 00:00:00 [facility] Cigarette pack-years 2019-11-26 00:00:00 2019-11-26 00:00:00 [facility] Alcohol intake 2019-11-26 00:00:00 2019-11-26 00:00:00 Current drinker of alcohol (finding) [facility] Tobacco use and exposure 2019-10-25 00:00:00 2019-10-25 00:00:00 Vishal power used [place] [facility] History SDOH Food Worry 2018-06-04 00:00:00 2018-06-04 00:00:00 1 [facility] History SDOH Food Scarcity 2018-06-04 00:00:00 2018-06-04 00:00:00 1 [facility] Smoking Status Start Date Stop Date Source Current every day smoker 2019-11-26 00:00:00 [facility] Medications Ordered Medication Name Filled Medication Name Start Date Stop Da te Current Medication? Ordering Clinician Indication Dosage Frequency Signature (SIG) Comments Components Source nitroGLYCERIN (NITROSTAT) 0.4 mg sublingual tablet 2019-11 00:00:00 Yes Coronary artery disease involving [place] coronary artery of [place] heart without angina pectoris Dissolve 1 tablet un jesus the tongue every 5 minutes as needed, up to 3 times. If chest pain persists, call 911. [facility] aspirin (ASPIRIN) 81 mg chewable tablet 2019-12-11 14:52:21 Yes 81mg QD Chew and swallow 81 mg by mouth daily. [facility] naltrexone (REVIA, VIVITROL) 50 mg tablet 2019-11-26 00:00:0 0 Yes Bipolar II disorder 50mg QD Take 1 tablet by mouth daily. [facility] gabapentin (NEURONTIN) 300 mg capsule 2019-11-26 00:00:00 Yes Other mixed anxiety disorders 300mg Take 1 capsule by mouth 4 times daily. [facility] lithium carbonate (ESKALITH) 300 mg capsule 2019 00:00:00 2019-12-26 23:59:00 Yes Bipolar II disorder Take 1 capsule by mouth daily AND 2 capsules at bedtime nightly. Do all this for 30 days. [facility] naltrexone (DEPADE) 50 mg tablet 2019-10-31 13:16:42 Yes 50mg QD Take 50 mg by mouth daily. Roberto Moore NAPROXEN ORAL 2019-10-31 13:11:15 Yes 250m g Take 250 mg by mouth as needed for mild pain. Roberto Moore lithium 300 mg tablet 2019-10-31 13:11:12 Yes 600mg QD Take 600 mg by mouth every evening. Roberto Moore lithium 300 MG capsule 2019-10-31 13:10:27 Yes 300mg QD Take 300 mg by mouth every morning. Roberto Moore propranoloL (INDERAL) 20 MG tablet 2019-10-31 12:23:34 Y es 20mg Q.[id number] Take 20 mg by mouth 3 (three) times a day. Roberto Moore gabapentin (NEURONTIN) 800 mg tablet 2019-10-31 12:23:34 Yes 300mg Q.[id number] Take 300 mg by mouth 3 (three) times a day. Roberto Moore omeprazole (PriLOSEC) 20 MG capsule 2019-10-31 12:23:34 Yes 20mg QD Take 20 mg by mouth daily. [facility] aspirin (ECOTRIN) 81 MG enteric coated tablet 2019-10-31 12:23:3 4 Yes 81mg QD Take 81 mg by mouth daily. Syeda [facility]gal[facility] omeprazole (PRILOSEC) 20 mg delayed release capsule 10-16 00:00:00 Yes Gastroesophageal reflux disease, esophagitis presence not specif ied 20mg QD Take 1 capsule by mouth daily STOP FAMOTIDINE. [facility] lithium carbonate (ESKALITH) 300 mg capsule 2019 00:00:00 2019-11-26 00:00:00 No Bipolar II disorder Take 1 capsule by mouth daily AND 2 capsules at bedtime nightly. Do all this for 30 days. [facility] naltrexone (REVIA, VIVITROL) 50 mg tablet 09-30 00:00:00 2019-11-26 00:00:00 No Bipolar II disorder 50mg QD Take 1 tablet by mo [facility] daily. [facility] gabapentin (NEURONTIN) 300 mg capsule 2019-10-01 00:00 :00 2019-11-26 00:00:00 No Other mixed anxiety disorders 300mg Take 1 capsule by mouth 4 times daily. [facility] propranoloL (INDERAL) 20 mg tablet 2019-08-22 00:00:00 Yes Other mixed anxiety disorders 20mg Take 1 tablet by mouth 3 times daily. [facility] famotidine (PEPCID) 20 mg tablet 2019-08-22 00:00:00 2019-09 00:00:00 No Gastroesophageal reflux disease, esophagitis presence not specified 20mg Q.5D Take 1 tablet by mouth 2 times daily. [facility] propranoloL (INDERAL) 20 mg tablet 2019-08-22 00:00:00 00:00:00 No Other mixed anxiety disorders 20mg Take [facility] daily. [facility] famotidine (PEPCID) 20 mg tablet 2019-08-22 00:00:00 2019-08 00:00:00 No Gastroesophageal reflux disease, esophagitis presence not specified 20mg Q.5D Take 1 tablet by mouth 2 times daily. [facility] propranoloL (INDERAL) 10 mg tablet 2019-07-23 00:00:00 00:00:00 No Other mixed anxiety disorders 10mg Ta ke 1 tablet by mouth 3 times daily as needed (anxiety). [facility] naltrexone (REVIA, VIVITROL) 50 mg tablet 5-05 00:00:00 2019-10-01 00:00:00 No Bipolar II disorder 50mg QD Take 1 tablet by [facility] daily. [facility] gabapentin (NEURONTIN) 300 mg capsule 2019-07-23 00:00 :00 2019-10-01 00:00:00 No Other mixed anxiety disorders 300mg Take 1 capsule by mouth 4 times daily. [facility] lithium carbonate (ESKALITH) 300 mg capsule 2019 00:00:00 2019-10-01 00:00:00 No Bipolar II disorder Take 1 capsule by mouth daily AND 2 capsules at bedtime nightly. [facility] lithium carbonate (ESKALITH) 300 mg capsule 2019 00:00:00 2019-07-23 00:00:00 No Bipolar II disorder Take 1 capsule by mouth daily AND 2 capsules at bedtime nightly. [facility] gabapentin (NEURONTIN) 300 mg capsule 2019-05-28 00:00 :00 2019-07-23 00:00:00 No Other mixed anxiety disorders 300mg Take 1 capsule by mouth 4 times daily. [facility] naltrexone (REVIA, VIVITROL) 50 mg tablet 3-10 00:00:00 2019-07-23 00:00:00 No Bipolar II disorder 50mg QD Take 1 tablet by [facility] daily. [facility] ketorolac (TORADOL) injection 30 mg 2019-05-16 11:15:0 0 2019-05-16 11:23:00 No Polyarthralgia 30mg [facility] nicotine (NICODERM CQ) 21 mg/24 hr patch 2019-05-10 00:00:00 Yes Tobacco use disorder 1{patch} QD Apply 1 Patch to skin as directed daily. [facility] thiamine, B-1, 100 mg tablet 2019-05-10 00:00:00 Y es Alcohol use disorder, severe, in early remission 100mg QD Take 1 tablet by mouth daily. [facility] nicotine polacrilex (NICORETTE) 2 mg Gum 2019-05-09 00:00:00 Yes Tobacco use disorder 2mg Place 1 Each inside cheek every 2 hours as needed (Tobacco withdrawals). [facility] lithium carbonate (ESKALITH) 300 mg capsule 2019 00:00:00 2019-05-28 00:00:00 No Bipolar II disorder Take 1 capsule by mouth daily AND 2 capsules at bedtime nightly. [facility] QUEtiapine (SEROQUEL) 25 mg tablet 2019-05-09 00:00:00 00:00:00 No Bipolar II disorder 25mg Q.5D Take 1 tablet by mouth 2 times daily. [facility] hydrOXYzine (ATARAX) 50 mg tablet 2019-05-09 00:00:00 2019 23:59:00 No Depressive disorder 50mg Take 1 table t by mouth 3 times daily as needed for up to 15 days for Anxiety. [facility] gabapentin (NEURONTIN) 300 mg capsule 2019-03-26 00:00 :00 2019-05-28 00:00:00 No Other mixed anxiety disorders 300mg Take 1 capsule by mouth 4 times daily. [facility] naltrexone (REVIA, VIVITROL) 50 mg tablet 03-26 00:00:00 2019-05-28 00:00:00 No Bipolar II disorder 50mg QD Take 1 tablet by mo uth daily. [facility] propranolol (INDERAL) 10 mg tablet 2019-03-26 00:00:00 00:00:00 No Bipolar II disorder 10mg Take 1 table t by mouth 3 times daily as needed (anxiety). [facility] amitriptyline (ELAVIL) 25 mg tablet 2019-03-26 00:00:0 0 2019-05-09 00:00:00 No Bipolar II disorder 50mg Take 2 tablets by mouth at b edtime nightly. [facility] lithium carbonate (ESKALITH) 300 mg capsule 2019 00:00:00 2019-05-09 00:00:00 No Bipolar II disorder 900mg Take 3 capsules by mouth 2 times daily (with meals). [facility] gabapentin (NEURONTIN) 300 mg capsule 2019-02-12 00:00 :00 2019-03-26 00:00:00 No Other mixed anxiety disorders 300mg Take 1 capsule by mouth 4 times daily. [facility] amitriptyline (ELAVIL) 25 mg tablet 2019-02-12 00:00:0 0 2019-03-26 00:00:00 No Bipolar II disorder 50mg Take 2 tablets by mouth at b edtime nightly. [facility] lithium carbonate (ESKALITH) 300 mg capsule 2018 00:00:00 2019-03-26 00:00:00 No Bipolar II disorder 900mg Take 3 capsules by mouth 2 times daily (with meals). [facility] naltrexone (REVIA, VIVITROL) 50 mg tablet 2018-03 00:00:00 2019-03-26 00:00:00 No Bipolar II disorder 50mg QD Take 1 tablet by mo ut daily. [facility] propranolol (INDERAL) 10 mg tablet 2019-02-12 00:00:00 202 00:00:00 No Bipolar II disorder 10mg Take 1 table t by mouth 3 times daily as needed (anxiety). [facility] gabapentin (NEURONTIN) 300 mg capsule 2018-12-18 00:00 :00 2019-02-12 00:00:00 No Other mixed anxiety disorders 300mg Take 1 capsule by mouth 4 times daily. [facility] amitriptyline (ELAVIL) 25 mg tablet 2018-12-18 00:00:0 0 2019-02-12 00:00:00 No Bipolar II disorder 50mg Take 2 tablets by mouth at b edtime nightly. [facility] lithium carbonate (ESKALITH) 300 mg capsule 2018 00:00:00 2019-02-12 00:00:00 No Bipolar II disorder 900mg Take 3 capsules by mouth 2 times daily (with meals). [facility] naltrexone (REVIA, VIVITROL) 50 mg tablet 2018-03 00:00:00 2019-02-12 00:00:00 No Bipolar II disorder 50mg QD Take 1 tablet by mo ut daily. [facility] propranolol (INDERAL) 10 mg tablet 2018-12-18 00:00:00 201 11-28-25 00:00:00 No Bipolar II disorder 10mg Take 1 table t by mouth 3 times daily as needed (anxiety). [facility] tiotropium (SPIRIVA WITH HANDIHALER) 18 mcg inhalation capsu le 2018-08-29 00:00:00 Yes Shortness of breath 1{capsule} QD Inhale 1 capsule by mouth daily. [facility] acetaminophen-codeine (TYLENOL/CODEINE #3) 300-30 mg per tab let 2017-10-18 00:00:00 Yes Low back pain at multiple sites 1{tbl} Take 1 tablet by mouth 2 times daily as needed for Pain. [facility] ergocalciferol (VITAMIN D2) 50,000 unit capsule 2017-08-03 0 0:00:00 Yes Vitamin D deficiency [id number] Take 1 capsule by mouth weekly. [facility] sulindac (CLINORIL) 200 mg tablet 2017-01-18 00:00:00 Ye s Polyarthralgia 200mg Take 1 tablet by mouth 2 times daily as needed for Judd n. [facility] polyethylene glycol (GOLYTELY) 236-22.74-6.74 -5.86 gram ora l solution 2016-08-03 00:00:00 Yes Hematochezia Add lukewarm drinking water to the fill jaylyn (4 liters) and shake. Drink as directed by your doctor.. [facility] Immunizations Ordered Immunization Name Filled Immunization Name Date Status Comments Source Tdap (Tetanus Toxoid, Reduced Diphtheria Toxoid And Acellular Pertussis, Absorbed) 2017-10-18 00:00:00 Completed [facility] Vital Signs Vital Name Observation Time Observation Value Comments Source Systolic blood pressure 2019-12-11 14:46:00 155 mm[Hg] [facility] Diastolic blood pressure 2019-12-11 14:46:00 114 mm[Hg] [facility] Heart rate 2019-12-11 14:46:00 70 /min [facility] Body temperature 2019-11-26 09:47:00 36.94 Sarina [facility] Respiratory rate 2019-11-26 09:47:00 20 /min [facility] Body height 2019-11-26 09:47:00 185.4 cm [facility] Body weight 2019-11-26 09:47:00 109.589 kg [facility] BMI 2019-11-26 09:47:00 31.88 kg/m2 [facility] Oxygen saturation in Arterial blood by Pulse oximetry 11-25 09:47:00 100 /min [facility] Systolic blood pressure 2019-10-31 12:16:00 132 mm[Hg] [facility] Diastolic blood pressure 2019-10-31 12:16:00 96 mm[Hg] [facility] Heart rate 2019-10-31 12:16:00 86 /min [facility] Body temperature 2019-10-31 12:16:00 36.5 Sarina [place] [facility] Respiratory rate 2019-10-31 12:16:00 17 /min [facility] Oxygen saturation in Arterial blood by Pulse oximetry 10-24 15:22:26 97 /min Roberto Moore Body height 2019-10-25 11:20:00 185.4 cm Roberto Moore Body weight 2019-10-25 11:20:00 109.77 kg Roberto Moore BMI 2019-10-25 11:20:00 31.93 kg/m2 Roberto [facility] Procedure Date / Time Performed Performing Clinician [facility] e ECHG NON-INVASIVE PROC ECHOCARDIOGRAM 2-D W/O CONTRAST (PROSOLVE) 2019-12-06 10:52:00 Ashanti Dye [facility] CTA CORONARY WITH POSSIBLE FFR 2019-10-25 17:04:14 Van Briansydnee Mejia [facility] TROPONIN 2019-10-25 13:52:00 Pedro Heart [facility] LITHIUM LEVEL 2019-10-25 13:52:00 CamposCortney mijaresyejose eduardo Rodriguez [place] [facility] BASIC METABOLIC PANEL 2019-10-25 13:52:00 Joey Camposynh-Farrah Jennifer mauro [facility] HC COMPLETE BLD COUNT W/AUTO DIFF 2019-10-25 13:52:00 Milagros Campos -Farrah Jennifer [place] [facility] HEPATIC FUNCTION PANEL 2019-10-25 13:52:00 Naya Campos obed [facility] D-DIMER 2019-10-25 13:52:00 Milagros Campos-Farrahjose eduardo Rodriguez [place] [facility] ESTIMATED GFR 2019-10-25 13:52:00 Naya Campos [place] [facility] MAGNESIUM LEVEL 2019-10-25 13:52:00 Milagros Campos-Farrah [facility] TROPONIN 2019-10-25 09:08:00 [facility] XRAY UPPER GI W AIR CONTRAST 2019-10-24 10:01:41 Axel Muhammad [facility] MYOCARDIAL PERFUSION SPECT REST/STRES MULTIPLE 2019-09-24 10 :12:51 Axel Muhammad [facility] ECHG STRESS TREADMILL - TRACING ONLY (PROSOLVE) 2019-09-24 0 9:14:10 Eusebio Villalobos [facility] THYROID STIMULATING HORMONE (TSH) 2019-05-08 11:39:00 Elise Chilel [facility] 2019-05-08 11:39:00 Edis Chilel [facility] CBC/DIFF 2019-05-08 11:39:00 Coverdale, Dario Landa [facility] COMPREHENSIVE METABOLIC PANEL 2019-05-08 11:39:00 Coverdale, Jose A Landa [facility] HEPATITIS PANEL 2019-05-08 11:39:00 Coverdale, Dario Landa [facility] HIV AG/AB COMBO DIAGNOSTIC/SYMPTOMATIC 2019-05-08 11:39:00 Cover jerrod Dario [facility] HEMOGLOBIN A1C 2019-05-08 11:39:00 [place], Dario Landa [facility] LIPID PROFILE 2019-05-08 11:39:00 Coverdale, Dario Landa [facility] CBC 2019-05-08 11:39:00 Coverdale, Dario Landa [facility] URINE DRUG SCREEN 2019-05-07 15:38:00 Edis Chilel [facility] URINALYSIS 2019-05-07 15:38:00 Edis Chilel [facility] URINALYSIS 2019-05-07 15:38:00 Edis Chilel [facility] Plan of Care Planned Activity Planned Date Details Comments Source Future Scheduled Test 2020-05-08 00:00:00 CORONARY ARTERY DI SEASE AGE 18 AND UP [code = CORONARY ARTERY DISEASE AGE 18 AND UP] [facility] Scheduled Test 2019-12-19 00:00:00 IMM Influenza Seas onal Dec to May (>/= 19 yrs) [code = IMM Influenza Seasonal Dec to May (>/= 19 yrs)] [facility] Scheduled Test 2019-10-19 00:00:00 INFLUENZA VACCINE [code = INFLUENZA VACCINE] [facility] Encounters Start Date/Time End Date/Time Encounter Type Admission Type [facility] Care Department Encounter ID Source 2019-05-07 11:26:59 Inpatient [facility] [id number] [facility] 2019-10-31 00:00:00 2019-10-31 00:00:00 Outpatient [facility] [id number] [facility] 2019-10-25 00:00:00 2019-10-25 00:00:00 Outpatient DIMPLE CAMPOS EN [facility] [id number] [facility] 2019-08-07 00:00:00 2019-08-07 00:00:00 Outpatient [facility] [id number] [facility] 2019-07-15 00:00:00 2019-07-15 00:00:00 Outpatient [facility] [id number] [facility] 2019-07-09 00:00:00 2019-07-09 00:00:00 Outpatient [facility] [id number] [facility] 2019-07-08 00:00:00 2019-07-08 00:00:00 Outpatient [facility] [id number] [facility] 2019-07-01 00:00:00 2019-07-01 00:00:00 Outpatient [facility] [id number] [facility] 2019-06-24 00:00:00 2019-06-24 00:00:00 Outpatient [facility] [id number] [facility] 2019-06-18 00:00:00 2019-06-18 00:00:00 Outpatient [facility] [id number] [facility] 2019-06-17 00:00:00 2019-06-17 00:00:00 Outpatient [facility] [id number] [facility] 2019-06-10 00:00:00 2019-06-10 00:00:00 Outpatient [facility] [id number] [facility] 2019-06-03 15:02:08 2019-06-03 15:02:08 Outpatient [facility] [id number] [facility] 2019-05-31 00:00:00 2019-05-31 00:00:00 Outpatient [facility] [id number] [facility] 2019-05-28 08:43:40 2019-05-28 08:43:40 Outpatient [facility] [id number] [facility] 2019-05-23 14:19:16 2019-05-23 14:19:16 Outpatient [facility] [id number] [facility] 2019-05-16 09:43:28 2019-05-16 09:43:28 Outpatient [facility] [id number] [facility] 2019-05-16 00:00:00 2019-05-16 00:00:00 Outpatient [facility] [id number] [facility] 2019-05-09 13:23:45 2019-05-09 13:23:45 Outpatient [facility] [id number] [facility] 2019-05-07 10:27:09 2019-05-07 10:27:09 Outpatient [facility] [id number] [facility] 2019-03-26 12:47:15 2019-03-26 12:47:15 Outpatient [facility] [id number] [facility] 2019-02-12 14:49:49 2019-02-12 14:49:49 Outpatient [facility] [id number] [facility] 2018-12-18 14:02:32 2018-12-18 14:02:32 Outpatient [facility] [id number] [facility] 2018-12-11 00:00:00 2018-12-11 00:00:00 Outpatient [facility] [id number] [facility] 2018-12-04 00:00:00 2018-12-04 00:00:00 Outpatient [facility] [id number] [facility] 2018-11-14 00:00:00 2018-11-14 00:00:00 Outpatient [facility] [id number] [facility] 2018-11-05 00:00:00 2018-11-05 00:00:00 Outpatient [facility] [id number] [facility] 2018-10-22 00:00:00 2018-10-22 00:00:00 Outpatient [facility] [id number] [facility] 2018-10-15 15:43:21 2018-10-15 15:43:21 Outpatient [facility] [id number] [facility] 2018-10-09 10:46:34 2018-10-09 10:46:34 Outpatient [facility] [id number] [facility] 2018-10-08 14:23:47 2018-10-08 14:23:47 Outpatient [facility] [id number] [facility] 2018-10-08 14:17:05 2018-10-08 14:17:05 Outpatient [facility] [id number] [facility] 2018-10-08 00:00:00 2018-10-08 00:00:00 Outpatient [facility] [id number] [facility] 2018-10-04 00:00:00 2018-10-04 00:00:00 Outpatient [facility] [id number] [facility] 2018-10-02 00:00:00 2018-10-02 00:00:00 Outpatient [facility] [id number] [facility] 2018-09-26 13:18:52 2018-09-26 13:18:52 Outpatient [facility] [id number] [facility] 2018-09-04 13:16:14 2018-09-04 13:16:14 Outpatient [facility] [id number] [facility] 2018-09-03 00:00:00 2018-09-03 00:00:00 Outpatient [facility] [id number] [facility] 2018-08-29 13:35:29 2018-08-29 13:35:29 Outpatient [facility] [id number] [facility] 2018-08-29 12:39:39 2018-08-29 12:39:39 Outpatient [facility] [id number] [facility] 2018-08-29 11:22:58 2018-08-29 11:22:58 Outpatient [facility] [id number] [facility] 2018-08-29 00:00:00 2018-08-29 00:00:00 Outpatient [facility] [id number] [facility] 2018-08-28 00:00:00 2018-08-28 00:00:00 Outpatient [facility] [id number] [facility] 2018-08-22 14:18:41 2018-08-22 14:18:41 Outpatient [facility] [id number] [facility] 2018-08-22 00:00:00 2018-08-22 00:00:00 Outpatient [facility] [id number] [facility] 2018-07-31 09:30:01 2018-07-31 09:30:01 Outpatient [facility] [id number] [facility] 2018-07-30 00:00:00 2018-07-30 00:00:00 [facility] [facility] [id number] [facility] 2018-07-25 00:00:00 2018-07-25 00:00:00 Outpatient [facility] [id number] [facility] 2018-07-23 00:00:00 2018-07-23 00:00:00 Outpatient [facility] [id number] [facility] 2018-07-17 13:37:20 2018-07-17 13:37:20 Outpatient [facility] [id number] [facility] 2018-07-09 00:00:00 2018-07-09 00:00:00 Outpatient [facility] [id number] [facility] 2018-07-04 10:41:08 2018-07-04 10:41:08 Outpatient [facility] [id number] [facility] 2018-07-03 14:34:17 2018-07-03 14:34:17 Outpatient [facility] [id number] [facility] 2018-07-02 13:34:49 2018-07-02 13:34:49 Outpatient [facility] [id number] [facility] 2018-07-02 13:28:13 2018-07-02 13:28:13 Outpatient [facility] [id number] [facility] 2018-06-05 12:30:07 2018-06-05 12:30:07 Outpatient [facility] [id number] [facility] 2018-06-05 11:39:41 2018-06-05 11:39:41 Outpatient [facility] [id number] [facility] 2018-06-04 10:00:13 2018-06-04 10:00:13 Outpatient [facility] [id number] [facility] 2018-06-04 09:51:42 2018-06-04 09:51:42 Outpatient [facility] [id number] [facility] 2018-05-07 09:10:17 2018-05-07 09:10:17 Outpatient [facility] [id number] [facility] 2018-05-07 08:09:44 2018-05-07 08:09:44 Outpatient [facility] [id number] [facility] 2018-05-07 08:06:18 2018-05-07 08:06:18 Outpatient [facility] [id number] [facility] 2018-04-24 05:08:54 2018-04-24 05:08:54 Emergency [facility] [id number] [facility] 2018-04-24 04:27:55 2018-04-24 04:27:55 Emergency [facility] [id number] [facility] 2018-04-24 01:21:11 2018-04-24 01:21:11 Outpatient [facility] [id number] [facility] 2018-04-24 00:40:51 2018-04-24 00:40:51 Emergency [facility] [id number] [facility] 2018-04-23 23:02:49 2018-04-23 23:02:49 Emergency [facility] [id number] [facility] 2018-04-19 00:00:00 2018-04-19 00:00:00 Outpatient [facility] [id number] [facility] 2018-04-11 00:00:00 2018-04-11 00:00:00 Outpatient [facility] [id number] [facility] 2018-03-02 09:41:30 2018-03-02 09:41:30 Outpatient [facility] [id number] [facility] 2018-03-02 00:00:00 2018-03-02 00:00:00 Outpatient [facility] [id number] [facility] 2018-02-14 11:41:22 2018-02-14 11:41:22 Outpatient [facility] [id number] [facility] 2018-02-07 12:52:53 2018-02-07 12:52:53 Outpatient [facility] [id number] [facility] 2018-01-01 10:57:00 2018-01-01 10:57:00 Outpatient [facility] [id number] [facility] 2017-11-29 00:00:00 2017-11-29 00:00:00 Outpatient [facility] [id number] [facility] 2017-11-22 11:30:06 2017-11-22 11:30:06 Outpatient [facility] [id number] [facility] 2017-11-21 00:00:00 2017-11-21 00:00:00 Outpatient [facility] [id number] [facility] 2017-11-21 00:00:00 2017-11-21 00:00:00 Outpatient [facility] [id number] [facility] 2017-11-17 11:26:10 2017-11-17 11:26:10 Outpatient [facility] [id number] [facility] 2017-10-18 13:54:51 2017-10-18 13:54:51 Outpatient [facility] [id number] [facility] 2017-09-13 09:45:57 2017-09-13 09:45:57 Outpatient [facility] [id number] [facility] 2017-09-06 00:00:00 2017-09-06 00:00:00 Outpatient [facility] [id number] [facility] 2017-09-05 11:47:09 2017-09-05 11:47:09 Outpatient [facility] [id number] [facility] 2017-08-22 07:45:42 2017-08-22 07:45:42 Outpatient [facility] [id number] [facility] 2017-08-03 11:25:54 2017-08-03 11:25:54 Outpatient [facility] [id number] [facility] 2017-08-01 08:41:10 2017-08-01 08:41:10 Outpatient [facility] [id number] [facility] 2017-06-23 11:22:16 2017-06-23 11:22:16 Outpatient [facility] [id number] [facility] 2017-06-23 09:46:59 2017-06-23 09:46:59 Outpatient [facility] [id number] [facility] 2017-06-23 00:00:00 2017-06-23 00:00:00 Outpatient [facility] [id number] [facility] 2017-06-22 08:33:2017-06-22 08:33:19 Outpatient [facility] [id number] [facility] 2017-01-18 15:36:23 2017-01-18 15:36:23 Outpatient [facility] [id number] [facility] 2017-01-18 14:36:11 2017-01-18 14:36:11 Outpatient [facility] [id number] [facility] 2016-08-03 14:52:19 2016-08-03 14:52:19 Outpatient [facility] [id number] [facility] Results Test Description Test Time Test Comments Results Result Comments Source CHEST SINGLE (PORTABLE) 2019-12-23 11:33:00 [place] [address] Patient Name: STEVE ARCHER MR #: [id number] : 1980 Age/Sex: 39/M Req #: [id number] Adm Physician: Ordered by: KAELA MORALES MD Report #: [id number] Location: ER Room/Bed: Procedure: [id number] DX/CHEST SINGLE (PORTABLE) Exam Date: 12/23/19 Exam Time: 1120 REPORT STATUS: Signed EXAMINATION: CHEST SINGLE (PORTABLE) INDICATION: Chest pain COMPARISON: None FINDINGS: LINES/TUBES:EKG leads overlie the chest. LUNGS:The lungs are well-inflated. No focal consolidation or pulmonary edema. PLEURA:No pleural effusion or pneumothorax. MEDIASTINUM:The cardiomediastinal silhouette appears normal in size and shape. BONES/SOFT TISSUES:No acute osseous injury. ABDOMEN:No free air under the diaphragm. IMPRESSION: No focal pneumonia or pulmonary edema. Signed by: Ankit Beal MD on 12/23/2019 11:34 AM Dictated By: ANKIT BEAL MD 2913 Transcribed By: STERLING on 12/23/19 1134 COPY TO: KAELA MORALES MD TRANSTHORACIC ECHO (TTE) 2019-12-06 13:49:00 TRA NSTHORACIC ECHO (TTE) Transthoracic Echo Report STEVE ARCHER Age: 39 Gender: M : 1980 Exam Date: 12/06/2019 10:52 Exam Location: [facility] Echo Ordering Phys: RADHA GUNDERSON (hchd/tabbar) Referring Phys: RADHA GUNDERSON (hchd/tabbar) Reading Phys: Mayra Lang M.D. Fellow Phys: Estrada Ye M.D. Fellow Phys: Credit Reporting Clerk: Cory Haynes Reason For Exam: Indications: ANGINA, unspecified ICD-9 Codes: I20.8 Exam Type: TRANSTHORACIC ECHO (TTE) Procedure CPT: 46341 Addtional CPT: C8929 Ht (in): 73 BSA: [...] 4.2-5.8 (M) / 3.8-5.2 (F) LV Systolic Diamete r PLAX 2.9 cm 2.5-4.0 (M) / 2.2-3.5 [...] cm/min LV Cardiac Index MOD BP 2264 cm/minm2 LV Mass by linear method 117 g LV Mass by linear method Index 48.9 g/m2 Aorta at Sinotubular Diameter 4.2 cm Ascending Aorta Diameter 3.4 cm RA Volume 57.3 cm RA Volume Index 23.9 cm/m2 DOPPLER AV Peak Velocity 126 cm/s AV [...] cm AV Area Cont Eq vti 4.5 cm2 AV Area Cont Eq pk 4 cm2 Mitral E Point Velocity 62.4 cm/s Mitral [...] cm/min LV Cardiac Index MOD BP 2264 cm/minm2 LV Mass by linear method 117 g LV Mass by linear method Index 48.9 g/m2 Aorta at Sinotubular Diameter 4.2 cm Ascending Aorta Diameter 3.4 cm RA Volume 57.3 cm RA Volume Index 23.9 cm/m2 DOPPLER AV Peak Velocity 126 cm/s AV [...] cm AV Area Cont Eq vti 4.5 cm2 AV Area Cont Eq pk 4 cm2 Mitral E Point Velocity 62.4 cm/s Mitral A Point Velocity 48.1 cm/s Mitral E to A Ratio 1.3 LV E' Lateral Velocity 11.4 cm/s Mitral E to LV E' Lateral Ratio 5.5 LV E' Septal Velocity 8.8 cm/s Mitral E to LV E' Septal Ratio 7.[address] [facility] [address] Coronary with Possible FFR 2019-10-25 20:03:23 Hm Interface, Radiology Results 10/25/2019 8:06 PM CDTEXAMINATION: CTA CORONARY WITH POSSIBLE FFRCLINICAL HISTORY: CPTECHNIQUE: Multiple CT angiographic images of the heart were obtained during intravenous administration of iodinated contrast. Computerized reformatted images of the coronary arteries and 3-D volume rendered images of the heart were also obtained. CT imaging was performed with iterative reconstruction technique and/or automated exposure control to reduce radiation dose.COMPARISON: None.STUDY QUALITY: Excellent.RADIATION DOSE (DLP): 323 mGy*cmFINDINGS: Calcium score:0Coronary angiography:The patient is right dominant.Left main (LM): Normal origin from left coronary cusp. Free of disease.Left anterior descending (LAD): Robust vessel, free of disease. Normal caliber OM1 widely patent. Slightly larger OM 2, widely patent. Ramus intermedius: Robust vessel, free of disease, supplying the lateral wall of the left ventricle.Left circumflex (LCX): Small vessel, free of disease. Small- caliber OM1, grossly patent. The left circumflex is diminutive beyond OM1 takeoff.Right coronary (RCA): Robust vessel with normal origin from right coronary cusp. Free of disease. The marginal branches are patent. One of these is a large caliber branch which wraps around inferiorly heart, supplying PDA territory.Cardiac chamber morphology:The heart is grossly normal in size. No evidence of intra-cardiac thrombus.Cardiac valves:Limited assessment of the right sided valves. No gross abnormality of the mitral or aortic valves.Pericardium:There is no pericardial effusion or pericardial thickenin g.Aorta:The visualized aorta is normal in diameter and without evidence of acute aortic syndrome.Pulmonary artery: Unopacified but normal in caliberExtracardiac findings:Lungs and airways: No focal airspace disease or suspicious pulmonary nodules. Pleura: No pleural effusion or pneumothorax.Mediastinum and lymph nodes: No lymphadenopathy. Upper abdomen: No suspicious abnormalities.Musculoskeletal: No suspicious osseous lesions. IMPRESSION:1. No evidence of coronary artery disease.CAD-RADS category: 0Explanation of CAD-RADS categories:CAD-RADS 0: No detectable coronary atherosclerosis.CAD-RADS 1: Min imal (<25%) coronary stenosis (this category also includes patients with positive remodeling, i.e. atherosclerosis without stenosis).CAD-RADS 2: Mild (25-49%) coronary stenosis.CAD-RADS 3: Moderate (50-69%) coronary stenosis.CAD- RADS 4A: Severe (70-99%) coronary stenosis. CAD-RADS 4B: >50% LM stenosis -OR- 3-vessel >70% stenosis.CAD-RADS 5: Occlusion (100% stenosis).Modifiers:N: Non-diagnostic. This can be combined with the above CAD-RADS categories, i.e. only a portion of the coronary tree is non-diagnostic.S: Stent.G: Graft.V: Vulnerability. Two or more of the following features are present: Low- attenuation plaque, positive remodeling, spotty calcification, or the "napkin ring sign."[id number] [facility] [address] level 2019-10-25 19:52:[address] (test code = 3719-2) <0.05 0.6-1.2 L Lab Interpretation (test code = 61257-6) Abnormal [place] SvwrbtznhSpkuqihi4961-53-98 14:56:14* Test Item Value Reference Range Interpretation Comments Troponin (test code = 53488-2) <0.006 0-0.04 In patients suspected of having a myocardial infarction, along with all other appropriate clinical measures and actions including ECG and other diagnostics as appropriate, measure Ultra TnI at 0 hrs and at 3 hrs.Myocardial infarction VERY LIKELYThe 0 hr TnI level is > 0.10 ng/mL Pato cardial infarction LIKELYThe 0 hr TnI level is > 0.04 ng/mL and 3 hr level is increased or decreased by at least 0.020 ng/mL Myocardi al infarction VERY UNLIKELYBoth the 0 hr and 3 hr TnI levels <= 0.04 ng/mL(within normal limits) OR 0 hr is > 0.04 ng/mL and 3 hr is increased OR decreased by less than 0.020 ng/mL [facility] geref7804-34-14 14:50:56* Test Item Value Reference Range Interpretation Comments Sodium (test code = 2951-2) 139 135- 150 mEq/L Potassium (test code = 2823-3) 4.1 3.5- 5.0 mEq/L Chloride (test code = 5-0) 106 98- 112 mEq/L CO2 (test code = 2027-9) 25 mmol/L 24-31 Anion gap (test code = 98551-1) 8@ANIO 7- 15 mEq/L BUN (test code = 3094-0) 7 mg/dL 7-18 Creatinine (test code = 2160-0) 0.80 mg/dL 0.7-1.2 Glucose (test code = 2345-7) 122 mg/dL 65-100 H Calcium (test code = 19788-0) 8.9 mg/dL 8.3-10.2 Lab Interpretation (test code = 54113-7) Abnormal [place] [facility] unitHep[facility] function emqbe0697-99-16 14:50:55* Test Item Value Reference Range Interpretation Comments Albumin (test code = 1751-7) 3.5 g/dL 3.5-5 Total bilirubin (test code = 1974-) 0.4 mg/dL 0.2-1.2 Bilirubin direct (test code = 1967-) <0.2 0-0.4 Alkaline phosphatase (test code = 6768-6) 54 U/L 0-129 Protein (test code = 2885-2) 5.9 g/dL 6.3-8.3 L ALT (test code = 1742-6) 31 U/L 5-50 AST (test code = 1920-8) 25 U/L 10-50 Lab Interpretation (test code = 46512-2) Abnormal [place] MethodistMagnesium nhjdx6889-88-86 14:50:55* Test Item Value Reference Range Interpretation Comments Magnesium (test code = 87587-3) 2.20 mg/dL 1.6-2.6 [place] MethodistEstimated DUN5005-97-30 14:50:54* Test Item Value Reference Range Interpretation Comments Estimated GFR (test code = 5488) >=90 mL/min/1.73 m2 Catergory Units InterpretationG1 >=90 Normal or highG2 60-89 Mildly gbzxzyifjX3r 45-59 Mildly to moderately qaccbxuboA0l 30-44 Moderately to severely decreasedG4 15-29 Severely decreasedG5 <15 Kidney failureThe eGFR was calculated using the Chronic Kidney Disease Epidemiology Collaboration (CKD-EPI) equation. Interpretation is based on recommendations of the National Kidney Foundation-Kidney Disease Outcomes Quality Initiative (NKF-KDOQI) published in 2014. Mejia HfdiagooeW-exbav4444-79-07 14:41:14* Test Item Value Reference Range Interpretation Comments D-dimer (test code = 29312-3) 0.34 0.00- 0.40 ug/mL FEU Units are ug/ml Fibrinogen Equivalent Unit.When combined with low clinical probability, D-dimer results of less than 0.5 ug/ml FEU have a good negative predictive value in excluding PE or DVT. For D-dimer results greater than 0.5 ug/ml FEU further testing is indicated if PE or DVT is suspected clinically.Elevated D-dimer results have been reported in DVT, PE, and DIC cases and may indicate the pre sence of a clot. D-dimer results may be elevated due to old age, , inflammatory diseases, trauma, post-operative states, sepsis, and malignancies. [facility]istCBC with platelet and pcxsrfdboxmo9125-20-14 14:28:20* Test Item Value Reference Range Interpretation Comments WBC (test code = 47049-5) 6.1 4.2- 11.0 k/uL RBC (test code = 05651-6) 4.36 m/uL 4.04-5.86 HGB (test code = 718-7) 16.2 g/dL 13-17.3 HCT (test code = 4544-3) 46.1 % 34-45 H MCV (test code = 787-2) 105.7 fL 80-98 H MCH (test code = 785-6) 37.2 pg 27-34 H MCHC (test code = 786-4) 35.1 g/dL 31.5-36.5 RDW - SD (test code = 19411-1) 46.8 fL 37-51 MPV (test code = 07568-8) 11.5 fL 7.4-10.4 H Platelet count (test code = 14852-8) 124 150- 400 k/uL L Nucleated RBC (test code = 70647-8) 0.00 /100 WBC Neutrophils (test code = 52988-8) 60.5 % 36-66 Lymphocytes (test code = 80345-7) 23.4 % 24-44 L Monocytes (test code = 80036-2) 13.6 % 0-6 H Eosinophils (test code = 23395-4) 1.5 % 0-6 Basophils (test code = 39067-7) 0.8 % 0-1.2 Immature granulocytes (test code = 88615-7) 0.2 % 0-1 Lab Interpretation (test code = 41451-4) Abnormal [place] MethodistXRAY UPPER GI W AIR [id number] 15:38:14IMPRESSION: Small amount of gastroesophageal reflux into the distal esophagus. Nomucosal abnormalities. If the report is "FINALIZED" it indicates that the atte nding/staffradiologist has reviewed the images and agrees with the resident'sint erpretation. Dictated By: Wisam Guerrero MD, 10/24/2019 2:19 PM I have reviewed the st udy and agree with the findings in this report. Signed By: Bright Reed, 2019 3:38 PM Interface, Rad/Mammog In - 10/24/2019 3:43 PM CDTEXAM: DOUBLE MT UM ESOPHAGRAMINDICATION: chronic sore throat 8 months, Hx of GERD, endorses food getting stuck in throat COMPARISON: None available. TECHNIQUE: Thick barium an d effervescent granules followed by thinbarium were swallowed by mouth and fluor oscopy was performed of theesophagus and documented with spot film radiographs.R ADIATION DOSE: Fluoroscopy Time: 0.9 min Dose (Kerma) Area Product: 8.2 Gycm2 Air Kerma (AK) value has been reviewed. It is below the limits setby the Radiation Protocol Committee (RPC) committee.FINDINGS: ESOPHAGUS: Motili ty: Within normal limits. Mucosa: Unremarkable. Distensibility: Normal.GAS TROESOPHAGEAL JUNCTION: No evidence of hiatal hernia.GASTROESOPHAGEAL REFLUX: Sm all gastroesophageal reflux into the distalesophagus.VISUALIZED STOMACH/DUODENUM : Unremarkable.IMPRESSIONIMPRESSION: Small amount of gastroesophageal reflux int o the distal esophagus. Nomucosal abnormalities.If the report is "FINALIZED" it indicates that the attending/staffradiologist has reviewed the images and agrees with the resident'sinterpretation.Dictated By: Wisam Guerrero MD, 10/24/2019 2:19 PMI have reviewed the study and agree with the findings in this report.Signed By: Desirae Reed, 10/24/2019 3:38 [facility]- XR KNEE 3 V [id number] 00:39:00 FAX: Larry Trivedi NP [phone] [place]: St: REG FAX: Missael De Luna DO Name: STEVE ARCHER [facility] : 1980 Age/S: 39/M [address] [facility] Unit #: [id number] Loc: [place] [address] Phys: Larry Trivedi NP Acct: [id number] Dis Date: Status: REG ER PHONE #: [phone] Exam Date: 09/25/2019 6213 FAX #: [phone] Reason: PAIN EXAMS: CPT CODE: [id number] XR KNEE 3 [place] LT [address] HISTORY: Pain Location: C3 FINDINGS: 3 images of the left knee are provided. No acute fracture, dislocation, or other acute osseous abnormality is demonstrated. IMPRESSION: 1. No fracture or other acute osseous abnormality identified. at 0039 Reported and signed by: Edis Lopez MD CC: Larry Trivedi SINGLE END SEWER; Missael De Luna DO T echnologist: Mary Avelar Trnscrd Date /Time/By: 09/26/2019 (0039) : By: [email or web address] Orig Print D/T: S: 020 (1491) PAGE 1 Signed Report MYOCARDIAL PERFUSION SPECT REST/STRES MULTIPLE 2019-09-24 15:04:00MYOCARDIAL PERFUSION SPECT REST/STRES MULTIPLE Myocardial Perfusion Report STEVE ARCHER Age: 39 Gender: M : 1980 Exam Date: 09/24/2019 07:57 Exam Location: [facility] Ordering Phys: AXEL MUHAMMAD Referring Phys: Reading Phys: Kim Carl MD Fellow Phys: Fellow Phys: Resident: Technologist: Yunier Andrade Reason For Exam: Indications: Chest pain, unspecified ICD-9 Codes: R07.9 Exam Type: MYOCARDIAL PERFUSION SPECT REST/STRES MULTIPLE Procedure CPT: 82091 Additional CPT: BP: / HR: Risk Factors: Previous Cardiac Procedures: Cardiac History: Pertinent Meds: Meds past 24 hrs: Pretest Chest Pain: CARDIOLOGY STRESS TEST Pharmacologi Cardiology exercise stress test results pending under separate report. Please look in EPIC under the Procedures Tab in Chart Review. [...] of 1. No areas of infarct identified. [place] Control: Do not remove! Kim Carl MD (Electronically Signed) Final Date: 24 September 2019 15:[address] [facility] Adrenaline Mobility TREADMILL STRESS-TRACING SFBB8116-75-15 10:57:04St[facility]: 2850-22-47Occ Name: STEVE ARCHER Department: 6337Patient ID: [id number] Room: Gender: M Mosaicist: Adelaida Jc CCTDOB: 1980 Requested By: MARU GUERRIER WOrder Number: [id number] Reading MD: Maru GUERRIER Interpretive StatementsThe patient was tested using LEXISCAN STRESS TEST for a duration of 01:00. Amaximum heart rate of 95 was obtained at 03:00 with a maximum systolic bloodpressure of 143/95 at 02:10 and a maximum diastolic blood pressure of 128/96obtained at 03:10. The resting ECG was normal.The stress ECG did not change diagnostically from the pre-test study.No ectopy was observed.CONCLUSION:Negative Lexiscan ECG stress test.Nuclear scan results pending under separate report per radiology department. Electronically Signed On 09-24-2019 10:57:01 CDT by Maru GUERRIERPeoples Hospitalpatitis Xfdzm3812-74-77 18:27:00* Test Item Value Reference Range Interpretation Comments Hepatitis C Virus (HCV) Antibody (test code = 35549-9) Negative Negative Hep B Surface Ag (test code = 5196-1) Negative Negative Hep A Vir Ab IgM (test code = 75729-8) Negative Negative Hep B Core Ab IgM (test code = 40863-8) Negative Negative Lab Interpretation (test code = 84408-7) Normal [place] [address]JdfpqpGEZ5131-61-08 14:04:00* Test Item Value Reference Range Interpretation Comments TSH (test code = 55354223) 0.85 0.45- 5.33 uIU/mL Lab Interpretation (test code = 50557-1) Normal [facility] [id number] 13:59:00* Test Item Value Reference Range Interpretation Comments Hemoglobin A1c (test code = 4548-4) 5.3 % 4.3-6.1 Estimated Average Glucose (test code = 04611719) 105 mg/dL 70-11 0 Lab Interpretation (test code = 14053-2) Normal [facility]/ZEY-28786-33-19 13:47:00* Test Item Value Reference Range Interpretation Comments HIV Ag/Ab Combo (test code = 30431-0) Negative Negative BLAS (test code = BLAS) If not done in EC Lab Interpretation (test code = 06147-2) Normal [facility] HospitalLipid Zjkfktm5187-12-65 13:17:00* Test Item Value Reference Range Interpretation Comments Cholesterol (test code = 2093-3) 113.0 mg/dL <=200.0 Triglyceride (test code = 81951340) 133 mg/dL <150 HDL (test code = 2085-9) 38.0 mg/dL See Reference Range Narrative . LDL (test code = 08642-5) 48 mg/dL <100 Op timal: < 100.0 mg/dLNear Optimal: 120-129 mg/dLBorderline: 130-159 mg/dLHigh: 160-189 mg/dLVery High: >=190 mg/dL Patient Fasting? (test code = 44402853) Yes [facility] HospitalXynlgsDblhxlv8308-56-22 13:17:00* Test Item Value Reference Range Interpretation Comments [address] (test code = 07159244) 0.4 mmol/L 1-1.2 L Lab Interpretation (test code = 57692-6) Abnormal [facility]abolic Vmver9465-98-06 13:17:00* Test Item Value Reference Range Interpretation Comments Sodium (test code = 2951-2) 142 mmol/L 136-145 Potassium (test code = 2823-3) 4.1 mmol/L 3.5-5.1 Chloride (test code = 2075-0) 106 mmol/L 98-107 CO2 (test code = 37993148) 29 mmol/L 21-31 Glucose (test code = 90458124) 100 mg/dL 70-110 Calcium (test code = 03870128) 9.9 mg/dL 8.6-10.3 Urea Nitrogen (test code = 72495034) 7.0 mg/dL 7-25 Creatinine (test code = 32465567) 0.8 mg/dL 0.7-1.3 Alkaline Phosphatase (test code = 35071057) 67 U/L 34-104 ALT (test code = 52810846) 27 U/L 7-52 AST (test code = 26342280) 20 U/L 13-39 Total Protein (test code = 2885-2) 6.2 g/dL 6-8.3 GFR, Estimated (test code = 71857535) >90 >=90 mL/min/1.73 m2 Albumin (test code = 74432-1) 4.2 g/dL 4.2-5.5 Anion Gap (test code = 44523490) 7 mmol/L 5-16 Lab Interpretation (test code = 38173-6) Normal [facility] HospitalCB/Erij3288-05-23 12:26:00* Test Item Value Reference Range Interpretation Comments WBC (test code = 6690-2) 7.3 K/uL 4.5-12 RBC (test code = 789-8) 5.07 4.60- 6.20 M/uL Hemoglobin (test code = 718-7) 16.7 g/dL 14-18 Hematocrit (test code = 4544-3) 48.2 % 40-54 MCV (test code = 787-2) 95.1 fL 82-92 H MCH (test code = 785-6) 32.9 pg 27-31 H MCHC (test code = 786-4) 34.6 g/dL 32-36 RDW (test code = 60455-4) 41.6 fL 35.1-43.9 Platelet (test code = 777-3) 145 K/uL 150-400 L Mean Platelet Volume (test code = 59647-5) 11.9 fL 9.4-12.4 Percent NRBC (test code = 71257501) 0.0 % Neutrophil (test code = 770-8) 72.6 % 34-67.9 H Lymphs (test code = 736-9) 17.0 % 21.8-50 L Monocytes (test code = 5905-5) 8.9 % 5.3-12 Eos (test code = 713-8) 0.7 % 0.8-5 L Basos (test code = 706-2) 0.4 % 0.2-1.2 Immature Granulocytes (test code = 40868490) 0.4 % 0-0.5 Neutrophils (Absolute) (test code = 10656841) 5.28 K/uL 1.78-5.3 6 Lymphs (Absolute) (test code = 96410314) 1.24 K/uL 1.32-3.57 L Monocytes(Absolute) (test code = 05867123) 0.65 K/uL 0.3-0.82 Eos (Absolute) (test code = 33597829) 0.05 K/uL 0.04-0.54 Baso (Absolute) (test code = 05630653) 0.03 K/uL 0.01-0.08 Immature Grans (Abs) (test code = 22135325) 0.03 K/uL 0-0.03 Absolute NRBC (test code = 47051699) 0.00 K/uL Lab Interpretation (test code = 33052-7) Abnormal [facility] Drug Xgexce2676-41-55 16:28:00* Test Item Value Reference Range Interpretation Comments Opiate, Ur (test code = 55106-5) Negative Negative Calibrated Standard: Morphine Positive if urine level > or = 300 ng/dL Amphetamine (test code = 07442-4) Negative Negative Calibrated Standard: D- Methamphetamine Positive if urine level > or = 1000 ng/mL Barbiturate (test code = 59898-8) Negative Negative Calibrated Standard: Secobarbital Positive if urine level is > or = 200 ng/mL Benzodiazepine (test code = 10535-8) Negative Negative Calibrated Standard: Lormethazepam Positive if urine level is > or = 200 ng/mL Cocaine (test code = 44339-9) Negative Negative Calibrated Standard: Benzoylecgonine Positive if urine level > or = 300 ng/dL PCP (test code = 20013-6) Negative Negative C alibrated Standard: Phencyclidine Positive if urine level > or = 25 ng/dL Cannabinoid (test code = 99965-2) Negative Negative Calibrated Standard: 11 nor-delta(9)-THC carboxylic acid Positive if urine level > or = 50 ng/mL Lab Interpretation (test code = 41406-3) [id number]* Test Item Value Reference Range Interpretation Comments Color (test code = 74139549) Yellow Colorless, Straw, Yellow Clarity (test code = 04516849) Clear Clear Spec [place], Ur (test code = 20936559) 1.008 1.001-1.035 pH, Ur (test code = 08463820) 5.0 5.0-8.0 Protein, Ur (test code = 30120713) Negative Negative mg/dL Glucose, Ur (test code = 18550389) Negative Negative mg/dL Ketone, Ur (test code = 25649251) Negative Negative mg/dL Bilirubin, Ur (test code = 15813004) Negative Negative mg/dL Nitrite, Ur (test code = 09897394) Negative Negative Leukocyte (test code = 70918985) Negative Negative mg/dL Blood, Ur (test code = 39472209) Negative Negative mg/dL Urobilinogen, Ur (test code = 36937124) <1.0 <1.0 EU/dL Lab Interpretation (test code = 64976-2) [facility]
--- OUTSIDE RECORDS SUMMARY | 2019-12-23 11:48 | XMS REPORT | Clinical Summary ---
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 Active gabapentin (NEURONTIN) Take 300 mg 0 800 mg tablet by mouth 3 (three) times a day. Active lithium 300 MG capsule Take 300 mg 0 by mouth every morning. Active omeprazole (PriLOSEC) 20 Take 20 mg by 0 MG capsule mouth daily. Active aspirin (ECOTRIN) 81 MG Take 81 mg by 0 enteric coated tablet mouth daily. Active lithium 300 mg tablet Take 600 mg 0 by mouth every evening. Active NAPROXEN ORAL Take 250 mg 0 by mouth as needed for mild pain. Active naltrexone (DEPADE) 50 mg Take 50 mg by 0 tablet mouth daily. Active Problems Problem Noted Date Chest pain 10/25/2019 Encounters Care Team Description Date Type Specialty Naldo Guzmán, PhD 11/18/2019 [facility] Health 10/31/2019 Clinical Home Health Service s Support 10/31/2019 Travel Naldo Guzmán, PhD 10/28/2019 Behavioral Home [facility] Service [facility] Heart MD Bui, Quynh-Uyen Thi, MD 10/25/2019 [facility] General Internal [place] rajat Encounter after 12/22/2018 Medical History Medical History Date Comments Arthritis Social History Date Tobacco Use Types Packs/Day Years Used Started: 03/20/1994 Current Every Day Smoker Cigarettes 1 10 Smokeless Tobacco: Never Used Tobacco Cessation: Ready to Quit: No; Co unseling Given: Yes Drinks/Week oz/Week Comments Alcohol Use patient is a heavy d mark but unawre of exact amount Yes Sex Assigned at Date Recorded Not on file Last Filed Vital Signs Reading Time Taken Comments Vital Sign 132/96 10/31/2019 12:16 PM CDT Blood Pressure 86 10/31/2019 12:16 PM CDT Pulse 36.5 C (97.7 F) 10/31/2019 12:16 PM CDT Temperature 17 10/31/2019 12:16 PM CDT Respiratory Rate 97% 10/25/2019 3:22 PM CDT Oxygen Saturation - - Inhaled Oxygen Concentration 110 kg (242 lb) 10/25/2019 11:20 AM CDT Weight 185.4 cm (6' 1") 10/25/2019 11:20 AM CDT Height 31.93 10/25/2019 11:20 AM CDT Body Mass Index Plan of Treatment Health Maintenance Due Date Last Done Comments INFLUENZA VACCINE 10/19/2019 Procedures Comments Procedure Name Priority Date/Time Associated Diag nosis CTA CORONARY WITH Routine 10/25/2019 POSSIBLE FFR 5:04 PM CDT MAGNESIUM LEVEL STAT 10/25/2019 1:52 PM CDT ESTIMATED GFR STAT 10/25/2019 1:52 PM CDT D-DIMER STAT 10/25/2019 1:52 PM CDT HEPATIC FUNCTION PANEL STAT 10/25/2019 1:52 PM CDT HC COMPLETE BLD COUNT STAT 10/25/2019 W/AUTO DIFF 1:52 PM CDT BASIC METABOLIC PANEL STAT 10/25/2019 1:52 PM CDT LITHIUM LEVEL STAT 10/25/2019 1:52 PM CDT TROPONIN Timed 10/25/2019 1:52 PM CDT TROPONIN Timed 10/25/2019 9:08 AM CDT after 12/22/2018 Results * CT Coronary with Possible FFR (10/25/2019 5:04 PM CDT) Specimen Narrative Performed At EXAMINATION: CTA CORONARY WITH POSSIBLE FFR HM RADIA NT CLINICAL HISTORY: CP TECHNIQUE: Multiple CT angiographic christian ges of the heart were obtained during intravenous administration of iodinated contrast. Computerized reformatted images of the coronary arteries and 3-D volume rendered images of the heart were also obtained. CT imaging was performed with iterative re construction technique and/or automated exposure control to reduce radiation do se. COMPARISON: None. STUDY QUALITY: Excellent. RADIATION DOSE (DLP): 323 mGy*cm FINDINGS: Calcium score: 0 Coronary angiography: The patient is right dominant. Left main (LM): Normal origin from left coronary cusp. Free of disease. Left anterior descending (LAD): Robust vessel, free of disease. Normal caliber OM1 widely patent. Slightly larger OM 2 , widely patent. Ramus intermedius: Robust vessel, free of disease, supplying the lateral wall of the left ventricle. Left circumflex (LCX): Small vessel, fr ee of disease. Small-caliber OM1, grossly patent. The left circumflex is diminuti ve beyond OM1 takeoff. Right coronary (RCA): Robust vessel wit h normal origin from right coronary cusp. Free of disease. The marginal branches are patent. One of these is a large caliber branch which wraps around infer iorly heart, supplying PDA territory. Cardiac chamber morphology: The heart is grossly normal in size. No evidence of intra-cardiac thrombus. Cardiac valves: Limited assessment of the right sided v arizmendi. No gross abnormality of the mitral or aortic valves. Pericardium: There is no pericardial effusion or per icardial thickening. Aorta: The visualized aorta is normal in diame ter and without evidence of acute aortic syndrome. Pulmonary artery: Unopacified but normal in caliber Extracardiac findings: Lungs and airways: No focal airspace di sease or suspicious pulmonary nodules. Pleura: No pleural effusion or pneumoth orax. Mediastinum and lymph nodes: No lymphad enopathy. Upper abdomen: No suspicious abnormalit ies. Musculoskeletal: No suspicious osseous lesions. IMPRESSION: 1. No evidence of coronary artery disea se. CAD-RADS category: 0 Explanation of CAD-RADS categories: CAD-RADS 0: No detectable coronary athe rosclerosis. CAD-RADS 1: Minimal (<25%) coronary nitza nosis (this category also includes patients with positive remodeling, i.e. atherosclerosis without stenosis). CAD-RADS 2: Mild (25-49%) coronary sten osis. CAD-RADS 3: Moderate (50-69%) coronary stenosis. CAD-RADS 4A: Severe (70-99%) coronary s tenosis. CAD-RADS 4B: >50% LM stenosis -OR- 3-ve ssel >70% stenosis. CAD-RADS 5: Occlusion (100% stenosis). Modifiers: N: Non-diagnostic. This can be combined with the above CAD-RADS categories, i.e. only a portion of the coronary tree is non-diagnostic. S: Stent. G: Graft. V: Vulnerability. Two or more of the fo llowing features are present: Low-attenuation plaque, positive remode ling, spotty calcification, or the "napkin ring sign." [id number] Procedure Note Hm Interface, Radiology Results - 10/25/2019 8:06 PM CDT EXAMINATION: CTA CORONARY WITH POSSIBLE FFR CLINICAL HISTORY: CP TECHNIQUE: Multiple CT angiographic images of the heart were obtained during intravenous administration of iodinated contrast. Computerized reformatted images of the coronary arteries and 3-D volume rendered images of the heart were also obtained. CT imaging was performed with iterative reconstruction technique and/or automated exposure control to reduce radiation dose. COMPARISON: None. STUDY QUALITY: Excellent. RADIATION DOSE (DLP): 323 mGy*cm FINDINGS: Calcium score: 0 Coronary angiography: The patient is right dominant. Left main (LM): Normal origin from left coronary cusp. Free of disease. Left anterior descending (LAD): Robust vessel, free of disease. Normal caliber OM1 widely patent. Slightly larger OM 2, widely patent. Ramus intermedius: Robust vessel, free of disease, supplying the lateral wall of the left ventricle. Left circumflex (LCX): Small vessel, free of disease. Small-caliber OM1, grossly patent. The left circumflex is diminutive beyond OM1 takeoff. Right coronary (RCA): Robust vessel with normal origin from right coronary cusp. Free of disease. The marginal branches are patent. One of these is a large caliber branch which wraps around inferiorly heart, supplying PDA territory. Cardiac chamber morphology: The heart is grossly normal in size. No evidence of intra-cardiac thrombus. Cardiac valves: Limited assessment of the right sided valves. No gross abnormality of the mitral or aortic valves. Pericardium: There is no pericardial effusion or pericardial thickening. Aorta: The visualized aorta is normal in diameter and without evidence of acute aortic syndrome. Pulmonary artery: Unopacified but normal in caliber Extracardiac findings: Lungs and airways: No focal airspace disease or suspicious pulmonary nodules. Pleura: No pleural effusion or pneumothorax. Mediastinum and lymph nodes: No lymphadenopathy. Upper abdomen: No suspicious abnormalities. Musculoskeletal: No suspicious osseous lesions. IMPRESSION: 1. No evidence of coronary artery diseas e. CAD-RADS category: 0 Explanation of CAD-RADS categories: CAD-RADS 0: No detectable coronary atherosclerosis. CAD-RADS 1: Minimal (<25%) coronary stenosis (this category also includes patients with positive remodeling, i.e. atherosclerosis without stenosis). CAD-RADS 2: Mild (25-49%) coronary stenosis. CAD-RADS 3: Moderate (50-69%) coronary stenosis. CAD-RADS 4A: Severe (70-99%) coronary stenosis. CAD-RADS 4B: >50% LM stenosis -OR- 3-vessel >70% stenosis. CAD-RADS 5: Occlusion (100% stenosis). Modifiers: N: Non-diagnostic. This can be combined with the above CAD-RADS categories, i.e. only a portion of the coronary tree is non-diagnostic. S: Stent. G: Graft. V: Vulnerability. Two or more of the following features are present: Low- attenuation plaque, positive remodeling, spotty calcification, or the "napkin ring sign." [id number] Performing Organization Address City/State/ZIP Code [place] Number [id number] [id number] [place] [address] * Estimated GFR (10/25/2019 1:52 PM CDT) Estimated GFR >=90 mL/min/1.73 m2 [place] Comment: CONFUCIANISM Catergory Units [facility] G1 >=90 Normal or high G2 60-89 Mildly decreased G3a 45-59 Mildly to moderately decreased G3b 30-44 Moderately to severely decreased G4 15-29 Severely decreased G5 <15 Kidney failure The eGFR was calculated using the Chronic Kidney Disease Epidemiology Collaboration (CKD-EPI) equation. Interpretation is based on recommendations of the National Kidney Foundation-Kidney Disease Outcomes Quality Initiative (NKF-KDOQI) published in 2014. Specimen Performing Organization Address City/State/ZIP Code [place] Number [address] [address] PATHOLOGY AND GENOMIC MEDICINE [place] CONFUCIANISM [place] [address] * Troponin (10/25/2019 1:52 PM CDT) Only the most recent of 2 results within the time period is included. Pathologist [facility] Troponin <0.006 0.000 - 0.040 ng/mL [place] Comment: CONFUCIANISM In patients suspected of [place] having a myocardial HOSPITAL infarction, along with all other appropriate clinical measures and actions including ECG and other diagnostics as appropriate, measure Ultra TnI at 0 hrs and at 3 hrs. Myocardial infarction VERY LIKELY The 0 hr TnI level is > 0.10 ng/mL Myocardial infarction LIKELY The 0 hr TnI level is > 0.04 ng/mL and 3 hr level is increased or decreased by at least 0.020 ng/mL Myocardial infarction VERY UNLIKELY Both the 0 hr and 3 hr TnI levels <= 0.04 ng/mL(within normal limits) OR 0 hr is > 0.04 ng/mL and 3 hr is increased OR decreased by less than 0.020 ng/mL Specimen Blood Performing Organization Address City/State/ZIP Code [place] Number [facility] [address] [place] [address] PATHOLOGY AND GENOMIC MEDICINE [place] CONFUCIANISM [place] [address] * D-dimer (10/25/2019 1:52 PM CDT) Pathologist [facility] D-dimer 0.34 0.00 - 0.40 ug/mL [place] Comment: FEU CONFUCIANISM Units are ug/ml Fibrinogen [place] Equivalent Unit. HOSPITAL When combined with low clinical probability, D-dimer results of less than 0.5 ug/ml FEU have a good negative predictive value in excluding PE or DVT. For D-dimer results greater than 0.5 ug/ml FEU further testing is indicated if PE or DVT is suspected clinically. Elevated D-dimer results have been reported in DVT, PE, and DIC cases and may indicate the presence of a clot. D-dimer results may be elevated due to old age, , inflammatory diseases, trauma, post-operative states, sepsis, and malignancies. Specimen Blood Performing Organization Address City/State/ZIP Code [place] Number [facility] DEPARTMENT OF [address] [place] [address] PATHOLOGY AND GENOMIC MEDICINE [facility] [address] * CBC with platelet and differential (10/25/2019 1:52 PM CDT) WBC 6.1 4.2 - 11.0 k/uL [facility] RBC 4.36 4.04 - 5.86 m/uL [facility] HGB 16.2 13.0 - 17.3 g/dL [facility] HCT 46.1 (H) 34.0 - 45.0 % [facility] MCV 105.7 (H) 80.0 - 98.0 fL [facility] MCH 37.2 (H) 27.0 - 34.0 pg [facility] MCHC 35.1 31.5 - 36.5 g/dL [facility] RDW - SD 46.8 37.0 - 51.0 fL [facility] MPV 11.5 (H) 7.4 - 10.4 fL [facility] Platelet count 124 (L) 150 - 400 k/uL [facility] Nucleated RBC 0.00 /100 WBC [facility] Neutrophils 60.5 36.0 - 66.0 % [facility] Lymphocytes 23.4 (L) 24.0 - 44.0 % [facility] Monocytes 13.6 (H) 0.0 - 6.0 % [facility] Eosinophils 1.5 0.0 - 6.0 % [facility] Basophils 0.8 0.0 - 1.2 % [facility] Immature 0.2 0.0 - 1.0 % [place] granulocytes [facility] Specimen Blood Performing Organization Address City/State/ZIP Code [place] Number [facility] [place] [address] PATHOLOGY AND GENOMIC MEDICINE [address] * Magnesium level (10/25/2019 1:52 PM CDT) Magnesium 2.20 1.60 - 2.60 mg/dL [facility] Specimen Performing Organization Address City/[facility] [place] [address] PATHOLOGY AND GENOMIC MEDICINE [address] * [place] Wheeler level (10/25/2019 1:52 PM CDT) [place] <0.05 (L) 0.60 - 1.20 mmol/L [facility] Specimen Serum Performing Organization Address City/[facility] [place] Number [facility] DEPARTMENT OF [address] [place] [address] PATHOLOGY AND GENOMIC MEDICINE [address] * Hepatic function panel (10/25/2019 1:52 PM CDT) Albumin 3.5 3.5 - 5.0 g/dL [facility] Total bilirubin 0.4 0.2 - 1.2 mg/dL [facility] Bilirubin <0.2 0.0 - 0.4 mg/dL [place] direct [facility] Alkaline 54 0 - 129 U/L [place] phosphatase [facility] Protein 5.9 (L) 6.3 - 8.3 g/dL [facility] ALT 31 5 - 50 U/L [facility] AST 25 10 - 50 U/L [facility] Specimen Blood Performing Organization Address City/State/ZIP Code [place] [facility] DEPARTMENT OF [address] [place] [phone] PATHOLOGY AND GENOMIC MEDICINE [facility] [address] * Basic metabolic panel (10/25/2019 1:52 PM CDT) Sodium 139 135 - 150 mEq/L [facility] Potassium 4.1 3.5 - 5.0 mEq/L [facility] Chloride 106 98 - 112 mEq/L [facility] CO2 25 24 - 31 mmol/L [facility] Anion gap 8@ANIO 7 - 15 mEq/L [facility] BUN 7 7 - 18 mg/dL [facility] Creatinine 0.80 0.70 - 1.20 mg/dL [facility] Glucose 122 (H) 65 - 100 mg/dL [facility] Calcium 8.9 8.3 - 10.2 mg/dL [facility] Specimen Blood Performing Organization Address City/State/ZIP Code [place] Number [facility] DEPARTMENT OF [address] [place] [address] PATHOLOGY AND GENOMIC MEDICINE [place] [address] 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
--- NOTE | 2019-12-23 11:56 | NUR ---
notified lab of lithium level add on per er md. vo rbvo twice.
[2019-12-23] MEDS ORDERED: LORAZEPAM INJ 2 MG/ML VIAL ONE (11:58)
[2019-12-23] MEDS ORDERED: LORAZEPAM INJ 2 MG/ML VIAL IV ONE (12:15)
--- NOTE | 2019-12-23 13:08 | Emergency Department Note ---
History of Present Illnes History of Present Illness Chief Complaint: Chest Pain History of Present Illness This is a 39 year old male Chief Complaint Comment Pt states he was sitting in orientation for his new job and began shaking uncontrollably and developed chest pains. 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 Pt staets [facility] came and saw him and did an EKG and he refused transport and came to er. Pt very anxious. Pt aaox4. ambulatory. Pt states he drinks alcohol everyday and considers himself, "an alcoholic." Pt slightly diaphoretic. md/rn in room for eval. Pt states no drugs and non smoker. . Historian: Patient Arrival Mode: Car Onset (how long ago): day(s) (2) Location: LEFT Quality: DULL Radiation: Denies non-radiation, Denies back, Denies neck, Denies extremity, D enies abdomen, Denies periumbilical, Denies flank, Denies proximal, Denies distal, Denies other Severity: mild Onset quality: gradual Duration (how long): day(s) (2) Timing of current episode: intermittent Progression: waxing and waning Chronicity: new Context: Denies recent illness, Denies recent surgery, Denies recent immobilization, Denies recent travel, Denies trauma/injury, Denies new medications, Denies hx of DVT/PE, Denies non-compliance w/ medications, Denies other Relieving factors: none Exacerbating factors: none Associated symptoms: Denies denies other symptoms, Denies confusion, Denies chest pain, Denies cough, Denies diaphoresis, Denies fever/chills, Denies h eadaches, Denies loss of appetite, Denies malaise, Denies nausea/vomiting, Denies rash, Denies seizure, Denies shortness of breath, Denies syncope, Denies weakness, Denies other Treatments prior to arrival: none Past Medical/Family History Physician Review I have reviewed the patient's past medical and family history. Any updates have been documented here. Past Medical History Recent Fever: No Clinical Suspicion of Infectio: No New/Unexplained Change in Ment: No Past Medical History: Hypertension, Anxiety, Other Mental Illness Other Medical History: etoh abuse (daily) obesity BIPOLAR TYPE 1 Other Surgery: mouth sx (unk) Social History Smoking Cessation: Never Smoker Counseling Performed: No Alcohol Use: Daily Any Illegal Drug Use: No Physically hurt or threatened: No Other Any Pre-Existing Lines (PICC,: No Review of Systems Review of Systems Constitutional: Reports no symptoms EENTM: Reports no symptoms Cardiovascular: Reports as per HPI Respiratory: Reports no symptoms Gastrointestinal: Reports no symptoms Genitourinary: Reports no symptoms Musculoskeletal: Reports no symptoms Integumentary: Reports no symptoms Neurological: Reports no symptoms Psychological: Reports no symptoms Endocrine: Reports no symptoms Hematological/Lymphatic: Reports no symptoms Physical Exam Related Data Allergies: Coded Allergies: No Known Allergies (Unverified , 12/23/19) Triage Vital Signs Vital Signs Date Time Temp Pulse Resp B/P (MAP) Pulse Ox O2 Delivery O2 Flow Rate FiO2 12/23/19 11:08 98.1 76 18 157/94 100 Room Air Vital signs reviewed: Yes Physical Exam CONSTITUTIONAL Constitutional: Present well-developed, Present well-nourished HENT HENT: Present normocephalic, Present atraumatic, Present oropharynx clear/mo ist, Present nose normal HENT L/R: Present left ext ear normal, Present right ext ear normal EYES Eyes: Reports PERRL, Reports conjunctivae normal NECK Neck: Present ROM normal PULMONARY Pulmonary: Present effort normal, Present breath sounds normal CARDIOVASCULAR Cardiovascular: Present regular rhythm, Present heart sounds normal, Present capillary refill normal, Present normal rate GASTROINTESTINAL Abdominal: Present soft, Present nontender, Present bowel sounds normal GENITOURINARY Genitourinary: Present exam deferred SKIN Skin: Present warm, Present dry MUSCULOSKELETAL Musculoskeletal: Present ROM normal NEUROLOGICAL Neurological: Present alert, Present oriented x 3, Present no gross motor or sensory deficits PSYCHOLOGICAL Psychological: Present mood/affect normal, Present judgement normal Results Laboratory Result Diagram: 12/23/19 1104 12/23/19 1104 Laboratory Laboratory Tests Test 12/23/19 11:04 White Blood Count 11.06 x10e3/uL (4.8-10.8) Red Blood Count 4.33 x10e6/uL (4.3-5.7) Hemoglobin 15.9 g/dL (14.0-18.0) Hematocrit 44.2 % (38.2-49.6) Mean Corpuscular Volume 102.1 fL (81-99) Mean Corpuscular Hemoglobin 36.7 pg (28-32) Mean Corpuscular Hemoglobin Concent 36.0 g/dL (31-35) Red Cell Distribution Width 11.3 % (11.7-14.4) Platelet Count 129 x10e3/uL (140-360) Neutrophils (%) (Auto) 79.1 % (38.7-80.0) Lymphocytes (%) (Auto) 12.2 % (18.0-39.1) Monocytes (%) (Auto) 7.6 % (4.4-11.3) Eosinophils (%) (Auto) 0.1 % (0.0-6.0) Basophils (%) (Auto) 0.5 % (0.0-1.0) Neutrophils # (Auto) 8.7 (2.1-6.9) Lymphocytes # (Auto) 1.4 (1.0-3.2) Monocytes # (Auto) 0.8 (0.2-0.8) Eosinophils # (Auto) 0.0 (0.0-0.4) Basophils # (Auto) 0.1 (0.0-0.1) Absolute Immature Granulocyte (auto 0.06 x10e3/uL (0-0.1) Sodium Level 139 mmol/L (136-145) Potassium Level 3.7 mmol/L (3.5-5.1) Chloride Level 103 mmol/L (98-107) Carbon Dioxide Level 26 mmol/L (22-29) Anion Gap 13.7 mmol/L (8-16) Blood Urea Nitrogen 6 mg/dL (7-26) Creatinine 0.95 mg/dL (0.72-1.25) Estimat Glomerular Filtration Rate > 60 ML/MIN (60-) BUN/Creatinine Ratio 6 (6-25) Glucose Level 112 mg/dL (74-118) Calcium Level 8.9 mg/dL (8.4-10.2) Total Bilirubin 0.7 mg/dL (0.2-1.2) Aspartate Amino Transf (AST/SGOT) 56 IU/L (5-34) Alanine Aminotransferase (ALT/SGPT) 50 IU/L (0-55) Alkaline Phosphatase 62 IU/L (40-150) Creatine Kinase 86 IU/L (30-200) Creatine Kinase MB 1.20 ng/mL (0-5.0) Troponin I 0.002 ng/mL (0-0.300) B-Type Natriuretic Peptide 22.5 pg/mL (0-100) Total Protein 6.6 g/dL (6.5-8.1) Albumin 4.0 g/dL (3.5-5.0) Globulin 2.6 g/dL (2.3-3.5) Albumin/Globulin Ratio 1.5 (0.8-2.0) Ethyl Alcohol Level < 10.0 mg/dL (0.0-10.0) Lab results reviewed: Yes Imaging Imaging results reviewed: Yes Procedures 12 Lead ECG Interpretation ECG Interpretation : ECG: 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: Interpreted by ED physician Date: Dec 23, 2019 Time: 10:50 Rhythm: sinus rhythm Rate: normal BPM: 76 QRS axis: normal ST segments normal: Yes Assessment & Plan Medical Decision Making MDM ANGINA GERD Reassessment Reassessment time: 13:07 Reassessment BETTER, REFUSED ADMISSION , DISCUSSED ALL THE RISK Assessment & Plan Final Impression: (1) Chest pain Last Vital Signs Date Time Temp Pulse Resp B/P (MAP) Pulse Ox O2 Delivery O2 Flow Rate FiO2 12/23/19 11:13 89 16 157/94 100 Room Air 12/23/19 11:08 98.1 Medications in the ED Aspirin 81 mg PRN ONCE PO ; Start 12/23/19 at 11:15; Stop 12/23/19 at 11:16; Status DC Aspirin 324 mg ONCE ONCE PO Last administered on 12/23/19at 12:03; Admin Dose 243 MG; Start 12/23/19 at 11:15; Stop 12/23/19 at 11:16; Status DC Sodium Chloride 1,000 ml @ 0 mls/hr Q0M STAT IV Last administered on 12/23/19at 12:02; Admin Dose 1,000 MLS/HR; Start 12/23/19 at 11:06; Stop 12/23/19 at 11:10; Status DC Lorazepam 2 mg STK-MED ONCE .ROUTE ; Start 12/23/19 at 11:58; Stop 12/23/19 at 11:52; Status DC Lorazepam 1 mg ONCE ONCE IV Last administered on 12/23/19at 12:03; Admin Dose 1 MG; Start 12/23/19 at 12:15; Stop 12/23/19 at 12:16; Status DC KAELA MORALES MD Dec 23, 2019 13:08
[2019-12-24] MEDS ORDERED: GABAPENTIN300 MG (14:28)
[2019-12-24] MEDS ORDERED: NALTREXONE HCL50 MG (14:28)
[2019-12-24] MEDS ORDERED: OMEPRAZOLE20 MG (14:28)
[2019-12-24] MEDS ORDERED: PROPRANOLOL HCL20 MG (14:28)
[2019-12-24] MEDS ORDERED: NITROGLYCERIN0.4 MG (14:28)
[2019-12-24] MEDS ORDERED: FAMOTIDINE20 MG (14:28)
[2019-12-24] MEDS ORDERED: PROPRANOLOL HCL10 MG (14:28)
[2019-12-24] MEDS ORDERED: LITHIUM CARBON300 MG (14:28)
== END 2019-12-23 14:39 | disposition home or self-care (01) ==
LOC: ER 11:45
DX: E07.9 Disorder of thyroid, unspecified (principal); I10 Essential (primary) hypertension; F41.9 Anxiety disorder, unspecified; F31.9 Bipolar disorder, unspecified; E66.9 Obesity, unspecified; F10.10 Alcohol abuse, uncomplicated
CPT/HCPCS: 36415; 71045; 80053; 80178; 80320; 82550; 82553; 83880; 84484; 85025; 93005; 99284; J2060; J7030

== ENCOUNTER 2019-12-24 13:39 | Emergency (ER) | payer SELFPAY ==
[~2019-12-24] VITALS: Ht 185.4 cm; Wt 108.0 kg
[2019-12-24 14:14] LABS: BASOPHILS # (AUTO) 0.1 (0.0-0.1); BASOPHILS % 0.6 % (0.0-1.0); EOSINOPHILS # (AUTO) 0.1 (0.0-0.4); EOSINOPHILS % 1.1 % (0.0-6.0); HEMATOCRIT 44.4 % (38.2-49.6); HEMOGLOBIN 16.5 g/dL (14.0-18.0); LYMPHOCYTES # (AUTO) 1.7 (1.0-3.2); LYMPHOCYTES % 20.5 % (18.0-39.1); MEAN CORPUSCULAR HEMOGLOBIN 38.5 pg (28-32); MEAN CORPUSCULAR HGB CONC 37.2 g/dL (31-35); MEAN CORPUSCULAR VOLUME 103.5 fL (81-99); MONOCYTES # (AUTO) 0.6 (0.2-0.8); MONOCYTES % 7.4 % (4.4-11.3); PLATELET COUNT 135 x10e3/uL (140-360); RED BLOOD COUNT 4.29 x10e6/uL (4.3-5.7); RED CELL DISTRIBUTION WIDTH 11.7 % (11.7-14.4)
[2019-12-24 14:21] LABS: AMPHETAMINES SCREEN,URINE NEGATIVE (NEGATIVE); BENZODIAZEPINES SCREEN,URINE NEGATIVE (NEGATIVE); PHENCYCLIDINE SCREEN,URINE NEGATIVE (NEGATIVE)
[2019-12-24 14:24] LABS: ALANINE AMINOTRANSFERASE 47 IU/L (0-55); ALBUMIN 4.2 g/dL (3.5-5.0); ALBUMIN/GLOBULIN RATIO 1.5 (0.8-2.0); ALKALINE PHOSPHATASE 58 IU/L (40-150); ANION GAP 15.8 mmol/L (8-16); BLOOD UREA NITROGEN 5 mg/dL (7-26); BUN/CREATININE RATIO 5 (6-25); CALCIUM 9.5 mg/dL (8.4-10.2); CARBON DIOXIDE 24 mmol/L (22-29); CHLORIDE 101 mmol/L (98-107); CREATININE, SERUM 0.93 mg/dL (0.72-1.25); EST GLOMERULAR FILTRATION RATE > 60 ML/MIN (60-); GLUCOSE 103 mg/dL (74-118); POTASSIUM 3.8 mmol/L (3.5-5.1); SODIUM 137 mmol/L (136-145)
[2019-12-24] MEDS ORDERED: NALTREXONE HCL50 MG (14:28)
[2019-12-24] MEDS ORDERED: GABAPENTIN300 MG (14:28)
[2019-12-24] MEDS ORDERED: OMEPRAZOLE20 MG (14:28)
[2019-12-24] MEDS ORDERED: LITHIUM CARBON300 MG (14:28)
[2019-12-24] MEDS ORDERED: FAMOTIDINE20 MG (14:28)
[2019-12-24] MEDS ORDERED: PROPRANOLOL HCL20 MG (14:28)
[2019-12-24] MEDS ORDERED: PROPRANOLOL HCL10 MG (14:28)
[2019-12-24] MEDS ORDERED: NITROGLYCERIN0.4 MG (14:28)
== END 2019-12-24 14:45 | disposition home or self-care (01) ==
LOC: ER 14:19
DX: R07.9 Chest pain, unspecified (principal); I10 Essential (primary) hypertension; F41.9 Anxiety disorder, unspecified; F31.9 Bipolar disorder, unspecified; E66.9 Obesity, unspecified
CPT/HCPCS: 36415; 71045; 80053; 80307; 83690; 83880; 84484; 85025; 93005; 99284